=== PATIENT | male | born 1995 | race Two or more races ===

== ENCOUNTER 2018-09-14 09:04 | Inpatient (IN) | payer OTHER, BC ==
[2018-09-14] MEDS ORDERED: Sodium Chloride 0.9% 10 ML Syringe FLUSH PRN (09:06)
[2018-09-14] MEDS ORDERED: Sodium Chloride 0.9% 2.5 ML Syringe FLUSH PRN (09:06)
[2018-09-14] MEDS ORDERED: ceFAZolin 2 GM in Premix Bag 1 BAG IV ONE (09:08)
[2018-09-14] MEDS ORDERED: HYDROmorphone 1 MG/ML Syringe IVPUSH ONE (09:08)
[2018-09-14] MEDS ORDERED: Diphtheria,Pertussis(Acell),Tetanus Vaccine 0.5 ML Syringe IM ONE (09:14)
--- NOTE | 2018-09-14 09:14 | EDM.PDOC ---
ED HPI GENERAL MEDICAL PROBLEM - General Stated Complaint: INJURY TO FINGERS Time Seen by Provider: 09/14/18 09:05 - History of Present Illness INITIAL COMMENTS - FREE TEXT/NARRATIVE: HISTORY AND PHYSICAL: History of present illness: The patient is a healthy 23-year-old male who is unsure of his last tetanus shot and presents from work after he was moving some types when a piece of pipe fell on to bilateral palms and severed the distal aspect of the left thumb as well as the right thumb. The remainder of the hand and the digits were spared and he had no other injuries. Patient is right-hand dominant and did not take anything for pain prior to coming here. The patient says that he had no systemic issues or problems prior to these events. Patient can feel the remainder of the fingers and says that sensation is intact in the thumbs and the proximal aspect of the thumbs are nontender. Review of systems: As per history of present illness and below otherwise all systems reviewed and negative. Past medical history: As per history of present illness and as reviewed below otherwise noncontributory. Surgical history: As per history of present illness and as reviewed below otherwise noncontributory. Social history: No reported history of drug or alcohol abuse. Family history: As per history of present illness and as reviewed below otherwise noncontributory. Physical exam: General: Well-developed well-nourished man who is hyperventilating and in acute distress on arrival. Vital signs were noted by me HEENT: Atraumatic, normocephalic, negative for conjunctival pallor or scleral icterus, mucous membranes moist, throat clear, neck supple, nontender, trachea midline. Lungs: Clear to auscultation, breath sounds equal bilaterally, chest nontender. Heart: S1S2, regular rhythm and sensory tachycardic rate of my evaluation but no overt murmurs Abdomen: Soft, nondistended, nontender. Negative for masses or hepatosplenomegaly. NABS Pelvis: Stable nontender. Genitourinary: Deferred. Rectal: Deferred. Extremities: Atraumatic, range of motion of all extremities with the exception of bilateral thumbs. At the left thumb the nailbed is disrupted about midpoint and there is soft tissue loss which is complete and the tip was brought in by coworkers. The PIP is intact and nontender as is the proximal phalanx and the remainder of the left digit and hands are intact and nontender. At the right thumb the entire distal phalanx is severed and is hanging on by a small tenuous piece of soft tissue on the volar aspect of the thumb but the proximal phalanx is intact and nontender. There is no aggressive bleeding noted at either thumb and the remainder of the right fingers and hand are intact without tenderness defects or deformities. Neurovascular unremarkable. Neuro: Awake, alert, oriented. Cranial nerves II through XII unremarkable. Cerebellum unremarkable. Motor and sensory unremarkable throughout. Exam nonfocal. Diagnostics: Bilateral thumb x-rays Therapeutics: Tdap, IV, Dilaudid Ancef digital block bilaterally Ativan Procedure note: Using 1% lidocaine without epinephrine a simple digital block was placed on bilateral thumbs without complication or event. The patient tolerated the procedure well. Sterile saline gauzes were placed on the fingers bilaterally and the distal phalanx soft tissue that is on fire tenuous tissue thread was not disrupted from the right thumb. 0925: Dr. Meyers is here at bedside evaluating the patient Impression: Bilateral distal thumb amputations Definitive disposition and diagnosis as appropriate pending reevaluation and review of above. bilateral thumbs Pain Score (Numeric/FACES): 10 - Related Data Allergies Allergy/AdvReac Type Severity Reaction Status Date / Time No Known Allergies Allergy Verified 09/14/18 09:15 Home Meds: Home Meds . [No Known Home Meds] 09/14/18 [History] ED ROS GENERAL - Review of Systems Review Of Systems: ROS reveals no pertinent complaints other than HPI. ED EXAM, GENERAL - Physical Exam Exam: See Below (see dictation) Course - Vital Signs Last Recorded V/S: Last Vital Signs Temp 36.8 C 09/14/18 09:12 Pulse 102 H 09/14/18 09:12 Resp 24 H 09/14/18 09:12 BP 151/98 H 09/14/18 09:12 Pulse Ox 100 09/14/18 09:12 - Orders/Labs/Meds Orders: Active Orders 24 hr Category Date Time Status Patient Status [ADT] Stat ADT 09/14/18 09:45 Ordered Notify Provider Consults [RC] ASDIRECTED Care 09/14/18 09:21 Active Vaccines to be Administered [RC] PER UNIT ROUTINE Care 09/14/18 09:14 Active Consult to Physician [CONS] Stat Cons 09/14/18 09:21 Active Fingers Thumb Lt FA [CR] Stat Exams 09/14/18 09:09 Ordered Fingers Thumb Rt F5 [CR] Stat Exams 09/14/18 09:09 Ordered Sodium Chloride 0.9% [Saline Flush] Med 09/14/18 09:06 Active 10 ml FLUSH ASDIRECTED PRN Sodium Chloride 0.9% [Saline Flush] Med 09/14/18 09:06 Active 2.5 ml FLUSH ASDIRECTED PRN Saline Lock Insert [OM.PC] Stat Oth 09/14/18 09:06 Ordered Medication Orders Sodium Chloride (Saline Flush) 10 ml FLUSH ASDIRECTED PRN PRN Reason: Keep Vein Open Sodium Chloride (Saline Flush) 2.5 ml FLUSH ASDIRECTED PRN PRN Reason: Keep Vein Open Meds: Medications Generic Name Dose Route Start Last Admin Trade Name Freq PRN Reason Stop Dose Admin Sodium Chloride 10 ml 09/14/18 09:06 Saline Flush FLUSH ASDIRECTED PRN Keep Vein Open Sodium Chloride 2.5 ml 09/14/18 09:06 Saline Flush FLUSH ASDIRECTED PRN Keep Vein Open Discontinued Medications Generic Name Dose Route Start Last Admin Trade Name Freq PRN Reason Stop Dose Admin Diphtheria/Tetanus/Acell Pertussis 0.5 ml 09/14/18 09:14 09/14/18 09:24 Adacel IM 09/14/18 09:15 0.5 ml .ONCE ONE Administration Hydromorphone HCl 1 mg 09/14/18 09:08 09/14/18 09:18 Dilaudid IVPUSH 09/14/18 09:09 1 mg ONETIME ONE Administration Cefazolin Sodium/Dextrose 2 gm 50 mls @ 100 mls/hr 09/14/18 09:08 09/14/18 09 :17 / Premix IV 09/14/18 09:37 100 mls/hr ONETIME ONE Administration Lidocaine HCl 5 ml 09/14/18 09:06 Xylocaine-Mpf 1% INJECT 09/14/18 09:07 ONETIME ONE Lidocaine HCl 5 ml 09/14/18 09:30 Xylocaine-Mpf 1% INJECT 09/14/18 09:31 ONETIME ONE Lorazepam 0.5 mg 09/14/18 09:30 09/14/18 09:36 Ativan IVPUSH 09/14/18 09:31 0.5 mg ONETIME ONE Administration Departure - Departure Time of Disposition: 09:47 Disposition: Still A Patient 30 Condition: Good Clinical Impression: Thumb injury Qualifiers: Encounter type: initial encounter Laterality: unspecified laterality Qualified Code(s): S69.90XA - Unspecified injury of unspecified wrist, hand and finger(s) , initial encounter - Discharge Information - My Orders Last 24 Hours: My Active Orders 09/14/18 09:06 Sodium Chloride 0.9% [Saline Flush] 10 ml FLUSH ASDIRECTED PRN Sodium Chloride 0.9% [Saline Flush] 2.5 ml FLUSH ASDIRECTED PRN Saline Lock Insert [OM.PC] Stat 09/14/18 09:09 Fingers Thumb Lt FA [CR] Stat Fingers Thumb Rt F5 [CR] Stat 09/14/18 09:14 Vaccines to be Administered [RC] PER UNIT ROUTINE 09/14/18 09:21 Notify Provider Consults [RC] ASDIRECTED Consult to Physician [CONS] Stat 09/14/18 09:45 Patient Status [ADT] Stat - Assessment/Plan Last 24 Hours: My Active Orders 09/14/18 09:06 Sodium Chloride 0.9% [Saline Flush] 10 ml FLUSH ASDIRECTED PRN Sodium Chloride 0.9% [Saline Flush] 2.5 ml FLUSH ASDIRECTED PRN Saline Lock Insert [OM.PC] Stat 09/14/18 09:09 Fingers Thumb Lt FA [CR] Stat Fingers Thumb Rt F5 [CR] Stat 09/14/18 09:14 Vaccines to be Administered [RC] PER UNIT ROUTINE 09/14/18 09:21 Notify Provider Consults [RC] ASDIRECTED Consult to Physician [CONS] Stat 09/14/18 09:45 Patient Status [ADT] Stat
[2018-09-14] MEDS ORDERED: LORazepam 2 MG/ML SDV IVPUSH ONE (09:30)
[2018-09-14] MEDS ORDERED: Lidocaine 2% 5 ML SDV ONE ×2 (09:47→10:44)
[2018-09-14] MEDS ORDERED: Rocuronium 10 MG/ML 10 ML Syringe ONE (09:47)
[2018-09-14] MEDS ORDERED: Succinylcholine 200 MG/10 ML MDV ONE (09:47)
[2018-09-14] MEDS ORDERED: Propofol 200 MG/20 ML SDV ONE (09:47)
[2018-09-14] MEDS ORDERED: Midazolam 1 MG/ML 2 ML SDV ONE (09:48)
[2018-09-14] MEDS ORDERED: fentaNYL 100 MCG/2 ML SDV ONE (09:48)
--- NOTE | 2018-09-14 10:06 | CR ---
EXAMINATION: Right thumb HISTORY: Trauma COMPARISON: None TECHNIQUE: 3 views FINDINGS: There is an amputation of the distal first phalanx through the proximal metaphysis. There appears to be a intact cutaneous component along the ulnar aspect. The distal fragment appears mildly comminuted along the fracture margin. The remaining osseous structures and joint spaces appear intact. Bone mineralization is otherwise normal. IMPRESSION: Amputation of the distal first phalanx through the proximal metaphysis of the distal first phalanx.
--- NOTE | 2018-09-14 10:06 | CR ---
EXAMINATION: Left thumb HISTORY: Trauma COMPARISON: None TECHNIQUE: 3 views FINDINGS: There is a displaced fracture through the distal first phalanx with an overlying cutaneous defect. There is likely amputation of the distal aspect of the tuft with overlying soft tissue. The remaining osseous structures and joint spaces appear preserved. IMPRESSION: 1. Soft tissue amputation including a small portion of the tuft of the distal first phalanx with an underlying displaced fracture through the mid aspect of the first distal phalanx.
--- NOTE | 2018-09-14 10:17 | PCM.PREANE ---
Preanesthetic Assessment - Procedure Proposed Procedure: repair of bilateral distal thumb traumatic amputations - Anesthesia/Transfusion/Family Hx Anesthesia History: No Prior Anesthesia Family History of Anesthesia Reaction: No Transfusion History: No Prior Transfusion(s) - Review of Systems General: No Symptoms (no meds, no allergies, no previous surgeries, no medical issues, no hospitalizations or ER visits) Pulmonary: No Symptoms Cardiovascular: No Symptoms Gastrointestinal: No Symptoms Neurological: No Symptoms (febrile seizure as a child. no sequelae) Other: Reports: None - Physical Assessment NPO Status Date: 09/14/18 NPO Status Time: 07:30 (breakfast bar and 2 bottles water at 0730) Pulse: 102 (anxious, has received block and dilaudid for pain) O2 Sat by Pulse Oximetry: 100 Respiratory Rate: 24 Blood Pressure: 151/98 Temperature: 36.8 C Vital Signs: Last Vital Signs Temp 36.8 C 09/14/18 09:12 Pulse 102 H 09/14/18 09:12 Resp 24 H 09/14/18 09:12 BP 151/98 H 09/14/18 09:12 Pulse Ox 100 09/14/18 09:12 Height: 1.8 m Weight: 86.183 kg ASA Class: 1E Mental Status: Alert & Oriented x3 Airway Class: Mallampati = 1 Dentition: Reports: Normal Dentition Thyro-Mental Finger Breadths: 3 Mouth Opening Finger Breadths: 3 ROM/Head Extension: Full Lungs: Clear to Auscultation, Normal Respiratory Effort Cardiovascular: Regular Rate, Regular Rhythm, No Murmurs - Allergies Allergies/Adverse Reactions: Allergies Allergy/AdvReac Type Severity Reaction Status Date / Time No Known Allergies Allergy Verified 09/14/18 09:15 - Blood Blood Available: No Product(s) Available: None - Anesthesia Plan Pre-Op Medication Ordered: Other (has had dilaudid in ER) - Acknowledgements Anesthesia Type Planned: General Anesthesia (Plan: GA with ETT. RSI with cricoid due to food and water this morning) Pt an Appropriate Candidate for the Planned Anesthesia: Yes Alternatives and Risks of Anesthesia Discussed w Pt/Guardian: Yes Pt/Guardian Understands and Agrees with Anesthesia Plan: Yes PreAnesthesia Questionnaire - Past Health History Medical/Surgical History: Denies Medical/Surgical History - SUBSTANCE USE Smoking Status *Q: Never Smoker Second Hand Smoke Exposure: No Recreational Drug Use History: No - HOME MEDS Home Medications: Home Meds . [No Known Home Meds] 09/14/18 [History] - CURRENT (IN HOUSE) MEDS Current Meds: Current Medications Sodium Chloride (Saline Flush) 10 ml FLUSH ASDIRECTED PRN PRN Reason: Keep Vein Open Sodium Chloride (Saline Flush) 2.5 ml FLUSH ASDIRECTED PRN PRN Reason: Keep Vein Open Discontinued Medications Diphtheria/Tetanus/Acell Pertussis (Adacel) 0.5 ml IM .ONCE ONE Stop: 09/14/18 09:15 Last Admin: 09/14/18 09:24 Dose: 0.5 ml Fentanyl (Sublimaze) Confirm Administered Dose 100 mcg .ROUTE .STK-MED ONE Stop: 09/14/18 09:49 Hydromorphone HCl (Dilaudid) 1 mg IVPUSH ONETIME ONE Stop: 09/14/18 09:09 Last Admin: 09/14/18 09:18 Dose: 1 mg Cefazolin Sodium/Dextrose 2 gm (/ Premix) 50 mls @ 100 mls/hr IV ONETIME ONE Stop: 09/14/18 09:37 Last Admin: 09/14/18 09:17 Dose: 100 mls/hr Lidocaine (Xylocaine-Mpf 2%) Confirm Administered Dose 5 ml .ROUTE .STK-MED ONE Stop: 09/14/18 09:48 Lidocaine HCl (Xylocaine-Mpf 1%) 5 ml INJECT ONETIME ONE Stop: 09/14/18 09:07 Lidocaine HCl (Xylocaine-Mpf 1%) 5 ml INJECT ONETIME ONE Stop: 09/14/18 09:31 Lorazepam (Ativan) 0.5 mg IVPUSH ONETIME ONE Stop: 09/14/18 09:31 Last Admin: 09/14/18 09:36 Dose: 0.5 mg Midazolam HCl (Versed 1 Mg/Ml) Confirm Administered Dose 2 mg .ROUTE .STK-MED ONE Stop: 09/14/18 09:49 Propofol (Diprivan 20 Ml) Confirm Administered Dose 200 mg .ROUTE .STK-MED ONE Stop: 09/14/18 09:48 Rocuronium [place] (Zemuron) Confirm Administered Dose 100 mg .ROUTE .STK-MED ONE Stop: 09/14/18 09:48 Succinylcholine Chloride (Quelicin) Confirm Administered Dose 200 mg .ROUTE .[facility] -MED ONE Stop: 09/14/18 09:48
[2018-09-14] MEDS ORDERED: Ondansetron 4 MG/2 ML SDV ONE ×2 (10:38→12:56)
[2018-09-14] MEDS ORDERED: Dexamethasone 4 MG/ML 5 ML MDV ONE (10:38)
[2018-09-14] MEDS ORDERED: Bupivacaine 0.25% 10 ML SDV ONE (10:44)
[2018-09-14] MEDS ORDERED: HYDROmorphone 2 MG/ML Syringe ONE (10:52)
[2018-09-14] MEDS ORDERED: Ondansetron 4 MG/2 ML SDV IVPUSH PRN ×2 (12:34→14:04)
[2018-09-14] MEDS ORDERED: Meperidine PF 25 MG/ML Syringe IV PRN (12:34)
[2018-09-14] MEDS ORDERED: HYDROmorphone 1 MG/ML Syringe IVPUSH PRN (12:34)
[2018-09-14] MEDS ORDERED: fentaNYL 100 MCG/2 ML SDV IVPUSH PRN (12:34)
[2018-09-14] MEDS ORDERED: Promethazine 25 MG/ML SDV IM PRN (12:34)
[2018-09-14] MEDS ORDERED: Ketorolac 30 MG/ML SDV ONE ×2 (12:56→13:25)
[2018-09-14] MEDS ORDERED: Bupivacaine 0.25%/EPINEPHrine 1:200,000 10 ML SDV ONE (13:54)
[2018-09-14] MEDS ORDERED: Ibuprofen 600 MG Tab PO PRN (14:04)
[2018-09-14] MEDS ORDERED: Ondansetron 4 MG Tab.DIS PO PRN (14:04)
[2018-09-14] MEDS ORDERED: diphenhydrAMINE 25 MG Cap PO PRN (14:04)
--- NOTE | 2018-09-14 14:10 | PCM.OPNOTE ---
- General Post-Op/Procedure Note Date of Surgery/Procedure: 09/14/18 Operative Procedure(s): Replantation of right thumb (bone fixation, bilateral digital nerve repairs, single digital artery repair with use of operating microscope), left thumb oneal flap for distal tip amputation closure. Pre Op Diagnosis: bilateral thumb transphalangeal amputations traumatic. Post-Op Diagnosis: Same Anesthesia Technique: General ET Tube, Local Primary Surgeon: Yanet Meyers Machine Veneer Repairer: Lorri Lockwood Reason Machine Veneer Repairer Was Necessary: retraction, prepping draping and closure assistance. Complications: None Condition: Serious
--- NOTE | 2018-09-14 14:15 | PCM.HP ---
H&P History of Present Illness - General Date of Service: 09/14/18 Admit Problem/Dx: Admission Diagnosis/Problem Admission Diagnosis/Problem Thumb injury - bilateral thumb amputations transphalangeal Source of Information: Patient History Limitations: Reports: No Limitations - History of Present Illness Onset of Symptoms: Reports: Today, Sudden Duration of Symptoms: Reports: Minutes: (30) Location: Reports: Upper Extremity, Left, Upper Extremity, Right Quality: Reports: Ache Severity: Severe Improves with: Reports: None Worsens with: Reports: None Context: Reports: Trauma Associated Symptoms: Reports: No Other Symptoms bilateral thumbs Pain Score (Numeric/FACES): 10 - Related Data Allergies/Adverse Reactions: Allergies Allergy/AdvReac Type Severity Reaction Status Date / Time No Known Allergies Allergy Verified 09/14/18 09:15 Home Medications: Home Meds . [No Known Home Meds] 09/14/18 [History] Past Medical History - Past Health History Medical/Surgical History: Denies Medical/Surgical History (previous febrile seizure as a child. Otherwise none.) Social & Family History - Family History Family Medical History: Noncontributory - Tobacco Use Smoking Status *Q: Never Smoker Second Hand Smoke Exposure: No - Recreational Drug Use Recreational Drug Use: No Drug Use in Last 12 Months: No H&P Review of Systems - Review of Systems: Review Of Systems: See Below General: Reports: No Symptoms HEENT: Reports: No Symptoms Pulmonary: Reports: No Symptoms Cardiovascular: Reports: No Symptoms Gastrointestinal: Reports: No Symptoms Genitourinary: Reports: No Symptoms Musculoskeletal: Reports: Hand Pain Skin: Reports: No Symptoms, Wound Psychiatric: Reports: No Symptoms Neurological: Reports: No Symptoms Hematologic/Lymphatic: Reports: No Symptoms Immunologic: Reports: No Symptoms Exam - Exam Exam: See Below - Vital Signs Vital Signs: Last Vital Signs Temp 96.8 F 09/14/18 13:42 Pulse 61 09/14/18 14:05 Resp 14 09/14/18 14:05 BP 119/69 09/14/18 14:05 Pulse Ox 99 09/14/18 14:05 Weight: 190 lb - Exam General: Alert, Oriented, Cooperative HEENT: EOMI Lungs: Clear to Auscultation, Normal Respiratory Effort Cardiovascular: Regular Rate, Regular Rhythm GI/Abdominal Exam: Soft Extremities: Other (bilateral thumb amputations. The right thumb has the flexor tendon frayed but attached. Deviatalized tip. No sensation. The left distal tip amputation is complete and far to distal for revascularization. Possible on the right - will attempt though the distal part is quite crushed and the nerves are present in a very long stretched out nature indicating avulsion. Flexor tendons intact to both digits. Extensor tendon moves the skin of the proximal thumb piece on the right. ) Skin: Warm, Dry, Wound (bilateral thumbs as above. ) Neuro Extensive - Mental Status: Alert, Oriented x3, Normal Mood/Affect Psychiatric: Alert, Normal Affect, Normal Mood, Anxious - Patient Data Imaging Impressions Last 24 hrs: 3v bilateral thumbs shows distal amputation trans distal phalanx on the left. Right is slightly more proximal but still in distal phalanx. - Problem List (1) Complete traumatic transphalangeal amputation of thumb SNOMED Code(s): 442228127 ICD Code: S68.519A - COMPLETE TRAUMATIC TRANSPHALANGEAL AMPUTATION OF THMB, INIT Status: Acute Priority: High Current Visit: Yes Qualifiers: Encounter type: initial encounter Laterality: left Qualified Code(s): S68.512A - Complete traumatic transphalangeal amputation of left thumb, initial encounter (2) Partial traumatic transphalangeal amputation of thumb SNOMED Code(s): 570136502 ICD Code: S68.529A - PARTIAL TRAUMATIC TRANSPHALANGEAL AMPUTATION OF THMB, INIT Status: Acute Priority: High Current Visit: Yes Qualifiers: Encounter type: initial encounter Laterality: right Qualified Code(s): S68.521A - Partial traumatic transphalangeal amputation of right thumb, initial encounter Problem List Initiated/Reviewed/Updated: Yes Orders Last 24hrs: Active Orders 24 hr Category Date Time Status Patient Status [ADT] Routine ADT 09/14/18 14:03 Active Bradycardia-Neuroaxis [employer] [RC] ROUTINE Care 09/14/18 12:37 Active Hypertension-Neuroaxis [employer] [RC] ROUTINE Care 09/14/18 12:37 Active Hypotension-Neuroaxis [employer] [RC] ROUTINE Care 09/14/18 12:37 Active Notify Provider Consults [RC] ASDIRECTED Care 09/14/18 09:21 Active Oxygen Therapy [RC] ASDIRECTED Care 09/14/18 12:37 Active Vaccines to be Administered [RC] PER UNIT ROUTINE Care 09/14/18 09:14 Active Vital Signs [RC] PER UNIT ROUTINE Care 09/14/18 12:34 Active Vital Signs [RC] PER UNIT ROUTINE Care 09/14/18 14:04 Active Wound Care [RC] DAILY Care 09/14/18 14:04 Active Consult to Physician [CONS] Stat Cons 09/14/18 09:21 Active Nothing Per Oral Diet [DIET] Diet 09/15/18 Breakfast Active Regular Diet [DIET] Diet 09/14/18 Dinner Active Acetaminophen/HYDROcodone [[place] 325-5 MG] Med 09/14/18 14:04 Active 1 tab PO Q4H PRN Aspirin Med 09/14/18 21:00 Ordered 81 mg PO BEDTIME Enoxaparin [Lovenox] Med 09/14/18 18:00 Ordered 30 mg SUBCUT Q24H HYDROmorphone [Dilaudid] Med 09/14/18 12:34 Active 1 mg IVPUSH ONETIME PRN Ibuprofen [Motrin] Med 09/14/18 14:04 Active 600 mg PO Q6H PRN Morphine Med 09/14/18 14:04 Ordered 2 mg IVPUSH Q2H PRN Ondansetron [Zofran ODT] Med 09/14/18 14:04 Ordered 4 mg PO Q6H PRN Ondansetron [Zofran] Med 09/14/18 12:34 Active 4 mg IVPUSH ONETIME PRN Ondansetron [Zofran] Med 09/14/18 14:04 Ordered 4 mg IVPUSH Q4H PRN Promethazine [Phenergan] Med 09/14/18 12:34 Active 12.5 mg IM ONETIME PRN Sodium Chloride 0.9% [Saline Flush] Med 09/14/18 09:06 Active 10 ml FLUSH ASDIRECTED PRN Sodium Chloride 0.9% [Saline Flush] Med 09/14/18 09:06 Active 2.5 ml FLUSH ASDIRECTED PRN diphenhydrAMINE [Benadryl] Med 09/14/18 14:04 Ordered 25 mg PO Q8H PRN Saline Lock Insert [OM.PC] Stat Oth 09/14/18 09:06 Ordered Medication Orders Hydrocodone Bitart/Acetaminophen ([place] 325-5 Mg) 1 tab PO Q4H PRN PRN Reason: Pain (moderate 4-6) Aspirin (Aspirin) 81 mg PO BEDTIME PRANEETH Diphenhydramine HCl (Benadryl) 25 mg PO Q8H PRN PRN Reason: Itching Enoxaparin Sodium (Lovenox) 30 mg SUBCUT Q24H PRANEETH Hydromorphone HCl (Dilaudid) 1 mg IVPUSH ONETIME PRN PRN Reason: Pain Ibuprofen (Motrin) 600 mg PO Q6H PRN PRN Reason: Pain (mild 1-3) Morphine Sulfate (Morphine) 2 mg IVPUSH Q2H PRN PRN Reason: Pain (severe 7-10) Ondansetron HCl (Zofran) 4 mg IVPUSH ONETIME PRN PRN Reason: Nausea Ondansetron HCl (Zofran Odt) 4 mg PO Q6H PRN PRN Reason: Nausea/Vomiting Ondansetron HCl (Zofran) 4 mg IVPUSH Q4H PRN PRN Reason: Nausea Promethazine HCl (Phenergan) 12.5 mg IM ONETIME PRN PRN Reason: Nausea Sodium Chloride (Saline Flush) 10 ml FLUSH ASDIRECTED PRN PRN Reason: Keep Vein Open Sodium Chloride (Saline Flush) 2.5 ml FLUSH ASDIRECTED PRN PRN Reason: Keep Vein Open Assessment/Plan Comment:: bilateral thumb amputations - transphalangeal. To the or for replantation attempt for the right and Samantha flap on the left. All questions answered and informed consent obtained. Though I am not optimistic on the distal nature or the crush injury we will attempt this as it is his thumb and worth every effort to salvage. He understands.
--- NOTE | 2018-09-14 14:31 | PCM.POSTAN ---
POST ANESTHESIA ASSESSMENT - MENTAL STATUS Mental Status: Alert, Oriented - RESPIRATORY Respiratory Status: Respiratory Rate WNL, Airway Patent, O2 Saturation Stable - CARDIOVASCULAR CV Status: Pulse Rate WNL, Blood Pressure Stable - GASTROINTESTINAL GI Status: No Symptoms - PAIN Pain Score: 1 - POST OP HYDRATION Hydration Status: Adequate & Stable - OBSERVATIONS Free Text/Narrative:: no anesthesia problems
[2018-09-14] MEDS: Acetaminophen/HYDROcodone 325-5 MG Tab PO PRN ×2 (16:05→20:25)
--- NOTE | 2018-09-14 18:04 | PCM.SN ---
- Free Text/Narrative Note: thumb on the right is slightly better than previous with improved turgor. Not convinced this will survive. Significant vessel damage. Discussed with patient. Pain controlled and feeling well. Will watch closely. Lovenox and aspirin start.
[2018-09-14] MEDS: Enoxaparin 30 MG/0.3 ML Syringe SUBCUT SCH (18:46)
--- NOTE | 2018-09-14 19:02 | PCM.PREANE ---
Preanesthetic Assessment - Procedure Proposed Procedure: surgery on thumb (re-do Oct 02)) - Anesthesia/Transfusion/Family Hx Anesthesia History: Prior Anesthesia Without Reaction (surgery yesterday for both thumbs. GA with ETT due to NPO status. No anesthesia issues.) Family History of Anesthesia Reaction: No Transfusion History: No Prior Transfusion(s) - Review of Systems General: No Symptoms Pulmonary: No Symptoms Cardiovascular: No Symptoms Gastrointestinal: No Symptoms Neurological: No Symptoms Other: Reports: None (history of anxiety in the past.) - Physical Assessment NPO Status Date: 09/16/18 NPO Status Time: 00:00 Pulse: 82 O2 Sat by Pulse Oximetry: 98 Respiratory Rate: 20 Blood Pressure: 132/68 Temperature: 36 C Vital Signs: Last Vital Signs Temp 36.9 C 09/14/18 17:45 Pulse 89 09/14/18 17:45 Resp 16 09/14/18 17:45 BP 125/76 09/14/18 17:45 Pulse Ox 98 09/14/18 17:45 Height: 1.8 m Weight: 86.183 kg ASA Class: 1E Mental Status: Alert & Oriented x3 Airway Class: Mallampati = 1 Dentition: Reports: Normal Dentition Thyro-Mental Finger Breadths: 2 Mouth Opening Finger Breadths: 3 ROM/Head Extension: Full Lungs: Clear to Auscultation, Normal Respiratory Effort Cardiovascular: Regular Rate, Regular Rhythm - Allergies Allergies/Adverse Reactions: Allergies Allergy/AdvReac Type Severity Reaction Status Date / Time No Known Allergies Allergy Verified 09/14/18 09:15 - Blood Blood Available: No Product(s) Available: None - Anesthesia Plan Pre-Op Medication Ordered: None - Acknowledgements Anesthesia Type Planned: General Anesthesia (Plan: GA with LMA . Discussed with patient. consent signed.) Pt an Appropriate Candidate for the Planned Anesthesia: Yes Alternatives and Risks of Anesthesia Discussed w Pt/Guardian: Yes Pt/Guardian Understands and Agrees with Anesthesia Plan: Yes PreAnesthesia Questionnaire - Past Health History Medical/Surgical History: Denies Medical/Surgical History (previous febrile seizure as a child. Otherwise none.) Neurological History: Reports: Seizure Other Neuro History: stated "siezures as a child." - SUBSTANCE USE Smoking Status *Q: Never Smoker Second Hand Smoke Exposure: No Recreational Drug Use History: No - HOME MEDS Home Medications: Home Meds . [No Known Home Meds] 09/14/18 [History] - CURRENT (IN HOUSE) MEDS Current Meds: Current Medications Hydrocodone Bitart/Acetaminophen ([place] 325-5 Mg) 1 tab PO Q4H PRN PRN Reason: Pain (moderate 4-6) Last Admin: 09/14/18 16:05 Dose: 1 tab Aspirin (Aspirin) 81 mg PO BEDTIME [facility] Diphenhydramine HCl (Benadryl) 25 mg PO Q8H PRN PRN Reason: Itching Enoxaparin Sodium (Lovenox) 30 mg SUBCUT Q24H [facility] Last Admin: 09/14/18 18:46 Dose: 30 mg Hydromorphone HCl (Dilaudid) 1 mg IVPUSH ONETIME PRN PRN Reason: Pain Lactated Ringer's (Ringers, Lactated) 1,000 mls @ 125 mls/hr IV ASDIRECTED [facility] Ibuprofen (Motrin) 600 mg PO Q6H PRN PRN Reason: Pain (mild 1-3) Morphine Sulfate (Morphine) 2 mg IVPUSH Q2H PRN PRN Reason: Pain (severe 7-10) Ondansetron HCl (Zofran) 4 mg IVPUSH ONETIME PRN PRN Reason: Nausea Ondansetron HCl (Zofran Odt) 4 mg PO Q6H PRN PRN Reason: Nausea/Vomiting Ondansetron HCl (Zofran) 4 mg IVPUSH Q4H PRN PRN Reason: Nausea Promethazine HCl (Phenergan) 12.5 mg IM ONETIME PRN PRN Reason: Nausea Sodium Chloride (Saline Flush) 10 ml FLUSH ASDIRECTED PRN PRN Reason: Keep Vein Open Sodium Chloride (Saline Flush) 2.5 ml FLUSH ASDIRECTED PRN PRN Reason: Keep Vein Open Discontinued Medications Bupivacaine HCl (Sensorcaine-Mpf 0.25%) Confirm Administered Dose 20 ml .ROUTE .STK-MED ONE Stop: 09/14/18 10:45 Bupivacaine HCl/Epinephrine Bitart ([place] 0.25%/Epinephrine 1:200,000) Confirm Administered Dose 20 ml .ROUTE .STK-MED ONE Stop: 09/14/18 13:55 Dexamethasone (Dexamethasone) Confirm Administered Dose 20 mg .ROUTE .STK-MED ONE Stop: 09/14/18 10:39 Diphtheria/Tetanus/Acell Pertussis (Adacel) 0.5 ml IM .ONCE ONE Stop: 09/14/18 09:15 Last Admin: 09/14/18 09:24 Dose: 0.5 ml Fentanyl (Sublimaze) Confirm Administered Dose 100 mcg .ROUTE .STK-MED ONE Stop: 09/14/18 09:49 Fentanyl (Sublimaze) 50 - 100 mcg IVPUSH Q5M PRN PRN Reason: Pain Stop: 09/14/18 12:40 Hydromorphone HCl (Dilaudid) 1 mg IVPUSH ONETIME ONE Stop: 09/14/18 09:09 Last Admin: 09/14/18 09:18 Dose: 1 mg Hydromorphone HCl (Dilaudid) Confirm Administered Dose 2 mg .ROUTE .STK-MED ONE Stop: 09/14/18 10:53 Cefazolin Sodium/Dextrose 2 gm (/ Premix) 50 mls @ 100 mls/hr IV ONETIME ONE Stop: 09/14/18 09:37 Last Admin: 09/14/18 09:17 Dose: 100 mls/hr Ketorolac Tromethamine (Toradol) Confirm Administered Dose 30 mg .ROUTE .STK- MED ONE Stop: 09/14/18 12:57 Ketorolac Tromethamine (Toradol) Confirm Administered Dose 30 mg .ROUTE .STK- MED ONE Stop: 09/14/18 13:26 Lidocaine (Xylocaine-Mpf 2%) Confirm Administered Dose 5 ml .ROUTE .STK-MED ONE Stop: 09/14/18 09:48 Lidocaine (Xylocaine-Mpf 2%) Confirm Administered Dose 20 ml .ROUTE .STK-MED ONE Stop: 09/14/18 10:45 Lidocaine HCl (Xylocaine-Mpf 1%) 5 ml INJECT ONETIME ONE Stop: 09/14/18 09:07 Last Admin: 09/14/18 15:27 Dose: Not Given Lidocaine HCl (Xylocaine-Mpf 1%) 5 ml INJECT ONETIME ONE Stop: 09/14/18 09:31 Last Admin: 09/14/18 15:27 Dose: Not Given Lorazepam (Ativan) 0.5 mg IVPUSH ONETIME ONE Stop: 09/14/18 09:31 Last Admin: 09/14/18 09:36 Dose: 0.5 mg Meperidine HCl (Demerol) 12.5 - 25 mg IV ONETIME PRN PRN Reason: Shivering Stop: 09/14/18 12:37 Midazolam HCl (Versed 1 Mg/Ml) Confirm Administered Dose 2 mg .ROUTE .STK-MED ONE Stop: 09/14/18 09:49 Ondansetron HCl (Zofran) Confirm Administered Dose 4 mg .ROUTE .STK-MED ONE Stop: 09/14/18 10:39 Ondansetron HCl (Zofran) Confirm Administered Dose 4 mg .ROUTE .STK-MED ONE Stop: 09/14/18 12:57 Propofol (Diprivan 20 Ml) Confirm Administered Dose 200 mg .ROUTE .STK-MED ONE Stop: 09/14/18 09:48 Rocuronium [place] (Zemuron) Confirm Administered Dose 100 mg .ROUTE .STK-MED ONE Stop: 09/14/18 09:48 Succinylcholine Chloride (Quelicin) Confirm Administered Dose 200 mg .ROUTE .STK -MED ONE Stop: 09/14/18 09:48
--- NOTE | 2018-09-14 19:04 | PCM48HPAN ---
Post Anesthesia Note - EVALUATION WITHIN 48HRS OF ANESTHETIC Vital Signs in Normal Range: Yes Patient Participated in Evaluation: Yes Respiratory Function Stable: Yes Airway Patent: Yes Cardiovascular Function Stable: Yes Hydration Status Stable: Yes Pain Control Satisfactory: Yes Nausea and Vomiting Control Satisfactory: Yes Mental Status Recovered: Yes Pulse Rate: 102 Resp Rate: 18 Temperature: 36.8 C Blood Pressure: 151/98 - COMMENTS/OBSERVATIONS Free Text/Narrative:: doing well. Surgeon will re-evaluate condition of thumbs in a.m. NPO for after dinner tomorrow for possible bring-back to OR on monday.
[2018-09-14] MEDS: Aspirin 81 MG Tab.Chew PO SCH (20:25)
[2018-09-15] MEDS: Acetaminophen/HYDROcodone 325-5 MG Tab PO PRN ×5 (02:01→23:55)
[2018-09-15] MEDS ORDERED: Lactated Ringers 1,000 ML IV SCH (03:00)
[2018-09-15] MEDS: Morphine 2 MG/ML Syringe IVPUSH PRN ×2 (06:50→21:32)
--- NOTE | 2018-09-15 08:53 | PCM.PN ---
- General Info Date of Service: 09/15/18 Admission Dx/Problem (Free Text): Admission Diagnosis/Problem Admission Diagnosis/Problem Thumb injury - bilateral thumb amputations transphalangeal Functional Status: Reports: Pain Controlled, Tolerating Diet, Ambulating. Denies: New Symptoms - Review of Systems General: Reports: No Symptoms HEENT: Reports: No Symptoms Pulmonary: Reports: No Symptoms Cardiovascular: Reports: No Symptoms Musculoskeletal: Reports: Hand Pain Skin: Reports: Other (wounds - healing well. ) Neurological: Reports: Numbness, Paresthesia Psychiatric: Reports: No Symptoms - Patient Data Vitals - Most Recent: Last Vital Signs Temp 97.2 F 09/15/18 04:40 Pulse 71 09/15/18 04:40 Resp 18 09/15/18 04:40 BP 111/62 09/15/18 04:40 Pulse Ox 96 09/15/18 04:40 Weight - Most Recent: 190 lb I&O - Last 24 Hours: Intake & Output 09/14/18 09/15/18 09/15/18 23:59 07:59 15:59 Intake Total 450 Output Total 650 Balance -200 Med Orders - Current: Current Medications Hydrocodone Bitart/Acetaminophen ([place] 325-5 Mg) 1 tab PO Q4H PRN PRN Reason: Pain (moderate 4-6) Last Admin: 09/15/18 08:42 Dose: 1 tab Aspirin (Aspirin) 81 mg PO BEDTIME [facility] Last Admin: 09/14/18 20:25 Dose: 81 mg Diphenhydramine HCl (Benadryl) 25 mg PO Q8H PRN PRN Reason: Itching Enoxaparin Sodium (Lovenox) 30 mg SUBCUT Q24H [facility] Last Admin: 09/14/18 18:46 Dose: 30 mg Hydromorphone HCl (Dilaudid) 1 mg IVPUSH ONETIME PRN PRN Reason: Pain Last Admin: 09/14/18 22:56 Dose: 1 mg Lactated Ringer's (Ringers, Lactated) 1,000 mls @ 125 mls/hr IV ASDIRECTED [facility] Last Admin: 09/15/18 04:56 Dose: 125 mls/hr Ibuprofen (Motrin) 600 mg PO Q6H PRN PRN Reason: Pain (mild 1-3) Morphine Sulfate (Morphine) 2 mg IVPUSH Q2H PRN PRN Reason: Pain (severe 7-10) Last Admin: 09/15/18 06:50 Dose: 2 mg Ondansetron HCl (Zofran) 4 mg IVPUSH ONETIME PRN PRN Reason: Nausea Ondansetron HCl (Zofran Odt) 4 mg PO Q6H PRN PRN Reason: Nausea/Vomiting Ondansetron HCl (Zofran) 4 mg IVPUSH Q4H PRN PRN Reason: Nausea Promethazine HCl (Phenergan) 12.5 mg IM ONETIME PRN PRN Reason: Nausea Sodium Chloride (Saline Flush) 10 ml FLUSH ASDIRECTED PRN PRN Reason: Keep Vein Open Sodium Chloride (Saline Flush) 2.5 ml FLUSH ASDIRECTED PRN PRN Reason: Keep Vein Open Discontinued Medications Bupivacaine HCl (Sensorcaine-Mpf 0.25%) Confirm Administered Dose 20 ml .ROUTE .STK-MED ONE Stop: 09/14/18 10:45 Bupivacaine HCl/Epinephrine Bitart ([place] 0.25%/Epinephrine 1:200,000) Confirm Administered Dose 20 ml .ROUTE .STK-MED ONE Stop: 09/14/18 13:55 Dexamethasone (Dexamethasone) Confirm Administered Dose 20 mg .ROUTE .STK-MED ONE Stop: 09/14/18 10:39 Diphtheria/Tetanus/Acell Pertussis (Adacel) 0.5 ml IM .ONCE ONE Stop: 09/14/18 09:15 Last Admin: 09/14/18 09:24 Dose: 0.5 ml Fentanyl (Sublimaze) Confirm Administered Dose 100 mcg .ROUTE .STK-MED ONE Stop: 09/14/18 09:49 Fentanyl (Sublimaze) 50 - 100 mcg IVPUSH Q5M PRN PRN Reason: Pain Stop: 09/14/18 12:40 Hydromorphone HCl (Dilaudid) 1 mg IVPUSH ONETIME ONE Stop: 09/14/18 09:09 Last Admin: 09/14/18 09:18 Dose: 1 mg Hydromorphone HCl (Dilaudid) Confirm Administered Dose 2 mg .ROUTE .STK-MED ONE Stop: 09/14/18 10:53 Cefazolin Sodium/Dextrose 2 gm (/ Premix) 50 mls @ 100 mls/hr IV ONETIME ONE Stop: 09/14/18 09:37 Last Admin: 09/14/18 09:17 Dose: 100 mls/hr Ketorolac Tromethamine (Toradol) Confirm Administered Dose 30 mg .ROUTE .STK- MED ONE Stop: 09/14/18 12:57 Ketorolac Tromethamine (Toradol) Confirm Administered Dose 30 mg .ROUTE .STK- MED ONE Stop: 09/14/18 13:26 Lidocaine (Xylocaine-Mpf 2%) Confirm Administered Dose 5 ml .ROUTE .STK-MED ONE Stop: 09/14/18 09:48 Lidocaine (Xylocaine-Mpf 2%) Confirm Administered Dose 20 ml .ROUTE .STK-MED ONE Stop: 09/14/18 10:45 Lidocaine HCl (Xylocaine-Mpf 1%) 5 ml INJECT ONETIME ONE Stop: 09/14/18 09:07 Last Admin: 09/14/18 15:27 Dose: Not Given Lidocaine HCl (Xylocaine-Mpf 1%) 5 ml INJECT ONETIME ONE Stop: 09/14/18 09:31 Last Admin: 09/14/18 15:27 Dose: Not Given Lorazepam (Ativan) 0.5 mg IVPUSH ONETIME ONE Stop: 09/14/18 09:31 Last Admin: 09/14/18 09:36 Dose: 0.5 mg Meperidine HCl (Demerol) 12.5 - 25 mg IV ONETIME PRN PRN Reason: Shivering Stop: 09/14/18 12:37 Midazolam HCl (Versed 1 Mg/Ml) Confirm Administered Dose 2 mg .ROUTE .ST-MED ONE Stop: 09/14/18 09:49 Ondansetron HCl (Zofran) Confirm Administered Dose 4 mg .ROUTE .STK-MED ONE Stop: 09/14/18 10:39 Ondansetron HCl (Zofran) Confirm Administered Dose 4 mg .ROUTE .STK-MED ONE Stop: 09/14/18 12:57 Propofol (Diprivan 20 Ml) Confirm Administered Dose 200 mg .ROUTE .STK-MED ONE Stop: 09/14/18 09:48 Rocuronium [place] (Zemuron) Confirm Administered Dose 100 mg .ROUTE .STK-MED ONE Stop: 09/14/18 09:48 Succinylcholine Chloride (Quelicin) Confirm Administered Dose 200 mg .ROUTE .STK -MED ONE Stop: 09/14/18 09:48 - Exam General: Alert, Oriented, Cooperative HEENT: EOMI Lungs: Normal Respiratory Effort Extremities: Normal Capillary Refill (on the left. Right fingertip dusky with poor turgor on volar skin. Dorsal nail with very slow cap refill. ), Slow Capillary Refill (on the right thumb dorsally. No visible refill volar. ) Skin: Warm, Dry Wound/Incisions: Healing Well, Drainage (on the left no significnat drainage on the right. Serosanguinous as expected on lovenox. ) Neurological: Other (sensation intact to left thumb, right thumb with no volar sensation. he does feel incision and zingers parasthesias as expected. ) Psy/Mental Status: Alert - Problem List & Annotations (1) Complete traumatic transphalangeal amputation of thumb SNOMED Code(s): 064012266 Code(s): S68.519A - COMPLETE TRAUMATIC TRANSPHALANGEAL AMPUTATION OF THMB, INIT Status: Acute Priority: High Current Visit: Yes Qualifiers: Encounter type: initial encounter Laterality: left Qualified Code(s): S68.512A - Complete traumatic transphalangeal amputation of left thumb, initial encounter (2) Partial traumatic transphalangeal amputation of thumb SNOMED Code(s): 265024084 Code(s): S68.529A - PARTIAL TRAUMATIC TRANSPHALANGEAL AMPUTATION OF THMB, INIT Status: Acute Priority: High Current Visit: Yes Qualifiers: Encounter type: initial encounter Laterality: right Qualified Code(s): S68.521A - Partial traumatic transphalangeal amputation of right thumb, initial encounter - Problem List Review Problem List Initiated/Reviewed/Updated: Yes - My Orders Last 24 Hours: My Active Orders 09/14/18 14:03 Patient Status [ADT] Routine 09/14/18 14:04 Vital Signs [RC] PER UNIT ROUTINE Wound Care [RC] DAILY Acetaminophen/HYDROcodone [[place] 325-5 MG] 1 tab PO Q4H PRN Ibuprofen [Motrin] 600 mg PO Q6H PRN Morphine 2 mg IVPUSH Q2H PRN Ondansetron [Zofran ODT] 4 mg PO Q6H PRN Ondansetron [Zofran] 4 mg IVPUSH Q4H PRN diphenhydrAMINE [Benadryl] 25 mg PO Q8H PRN 09/14/18 18:00 Enoxaparin [Lovenox] 30 mg SUBCUT Q24H 09/14/18 21:00 Aspirin 81 mg PO BEDTIME 09/14/18 Dinner Regular Diet [DIET] 09/15/18 03:00 Lactated Ringers [Ringers, Lactated] 1,000 ml IV ASDIRECTED 09/15/18 Dinner NPO [Nothing Per Oral Diet] [DIET] - Assessment Assessment:: struggling replant on the right. Left side oneal flap doing quite well. - Plan Plan:: bilateral thumb amputations - transphalangeal. left thumb doing quite well. Right thumb struggling. I do not think this will survive and we discussed revision. We will wait for full declaration. No chance at repeat revascularization given vessel damage and distal amputation. All questions answered. NPO after 3am tonight with fluids then. Otherwise activity and diet as tolerated. norco, morphine and ibuprofen if needed. Lovenox and asa continue.
[2018-09-15] MEDS: Cephalexin 500 MG Cap PO SCH ×3 (11:48→23:56)
[2018-09-15] MEDS: Enoxaparin 30 MG/0.3 ML Syringe SUBCUT SCH (18:26)
[2018-09-15] MEDS: Aspirin 81 MG Tab.Chew PO SCH (21:32)
[2018-09-16] MEDS ORDERED: Lactated Ringers 1,000 ML IV SCH (03:00)
[2018-09-16] MEDS: Cephalexin 500 MG Cap PO SCH ×3 (05:13→18:45)
[2018-09-16] MEDS: Morphine 2 MG/ML Syringe IVPUSH PRN ×2 (05:13→09:19)
--- NOTE | 2018-09-16 09:30 | PCM.PN ---
- General Info Date of Service: 09/16/18 Admission Dx/Problem (Free Text): Admission Diagnosis/Problem Admission Diagnosis/Problem Thumb injury - bilateral thumb amputations transphalangeal Functional Status: Reports: Pain Controlled, Tolerating Diet, New Symptoms - Review of Systems General: Reports: No Symptoms HEENT: Reports: No Symptoms Musculoskeletal: Reports: Hand Pain Skin: Reports: Other (wounds healing well) Neurological: Reports: Numbness, Paresthesia Psychiatric: Reports: No Symptoms - Patient Data Vitals - Most Recent: Last Vital Signs Temp 97.2 F 09/16/18 04:52 Pulse 59 L 09/16/18 04:52 Resp 16 09/16/18 04:52 BP 117/71 09/16/18 04:52 Pulse Ox 96 09/16/18 04:52 Weight - Most Recent: 190 lb I&O - Last 24 Hours: Intake & Output 09/15/18 09/16/18 09/16/18 23:59 07:59 15:59 Intake Total 950 1194 Output Total 1100 650 Balance -150 544 Med Orders - Current: Current Medications Hydrocodone Bitart/Acetaminophen ([place] 325-5 Mg) 1 - 2 tab PO Q4H PRN PRN Reason: Pain (moderate 4-6) Last Admin: 09/15/18 23:55 Dose: 1 tab Aspirin (Aspirin) 81 mg PO BEDTIME [facility] Last Admin: 09/15/18 21:32 Dose: 81 mg Cephalexin (Keflex) 500 mg PO Q6HR [facility] Last Admin: 09/16/18 05:13 Dose: 500 mg Diphenhydramine HCl (Benadryl) 25 mg PO Q8H PRN PRN Reason: Itching Enoxaparin Sodium (Lovenox) 30 mg SUBCUT Q24H [facility] Last Admin: 09/15/18 18:26 Dose: 30 mg Hydromorphone HCl (Dilaudid) 1 mg IVPUSH ONETIME PRN PRN Reason: Pain Last Admin: 09/14/18 22:56 Dose: 1 mg Lactated Ringer's (Ringers, Lactated) 1,000 mls @ 125 mls/hr IV ASDIRECTED [facility] Last Admin: 09/16/18 03:10 Dose: 125 mls/hr Ibuprofen (Motrin) 600 mg PO Q6H PRN PRN Reason: Pain (mild 1-3) Morphine Sulfate (Morphine) 2 mg IVPUSH Q2H PRN PRN Reason: Pain (severe 7-10) Last Admin: 09/16/18 09:19 Dose: 2 mg Ondansetron HCl (Zofran Odt) 4 mg PO Q6H PRN PRN Reason: Nausea/Vomiting Ondansetron HCl (Zofran) 4 mg IVPUSH Q4H PRN PRN Reason: Nausea Promethazine HCl (Phenergan) 12.5 mg IM ONETIME PRN PRN Reason: Nausea Sodium Chloride (Saline Flush) 10 ml FLUSH ASDIRECTED PRN PRN Reason: Keep Vein Open Sodium Chloride (Saline Flush) 2.5 ml FLUSH ASDIRECTED PRN PRN Reason: Keep Vein Open Discontinued Medications Hydrocodone Bitart/Acetaminophen ([place] 325-5 Mg) 1 tab PO Q4H PRN PRN Reason: Pain (moderate 4-6) Last Admin: 09/15/18 18:24 Dose: 1 tab Bupivacaine HCl (Sensorcaine-Mpf 0.25%) Confirm Administered Dose 20 ml .ROUTE .STK-MED ONE Stop: 09/14/18 10:45 Bupivacaine HCl/Epinephrine Bitart ([place] 0.25%/Epinephrine 1:200,000) Confirm Administered Dose 20 ml .ROUTE .STK-MED ONE Stop: 09/14/18 13:55 Dexamethasone (Dexamethasone) Confirm Administered Dose 20 mg .ROUTE .STK-MED ONE Stop: 09/14/18 10:39 Diphtheria/Tetanus/Acell Pertussis (Adacel) 0.5 ml IM .ONCE ONE Stop: 09/14/18 09:15 Last Admin: 09/14/18 09:24 Dose: 0.5 ml Fentanyl (Sublimaze) Confirm Administered Dose 100 mcg .ROUTE .STK-MED ONE Stop: 09/14/18 09:49 Fentanyl (Sublimaze) 50 - 100 mcg IVPUSH Q5M PRN PRN Reason: Pain Stop: 09/14/18 12:40 Hydromorphone HCl (Dilaudid) 1 mg IVPUSH ONETIME ONE Stop: 09/14/18 09:09 Last Admin: 09/14/18 09:18 Dose: 1 mg Hydromorphone HCl (Dilaudid) Confirm Administered Dose 2 mg .ROUTE .STK-MED ONE Stop: 09/14/18 10:53 Cefazolin Sodium/Dextrose 2 gm (/ Premix) 50 mls @ 100 mls/hr IV ONETIME ONE Stop: 09/14/18 09:37 Last Admin: 09/14/18 09:17 Dose: 100 mls/hr Lactated Ringer's (Ringers, Lactated) 1,000 mls @ 125 mls/hr IV ASDIRECTED [facility] Last Admin: 09/15/18 04:56 Dose: 125 mls/hr Ketorolac Tromethamine (Toradol) Confirm Administered Dose 30 mg .ROUTE .STK- MED ONE Stop: 09/14/18 12:57 Ketorolac Tromethamine (Toradol) Confirm Administered Dose 30 mg .ROUTE .STK- MED ONE Stop: 09/14/18 13:26 Lidocaine (Xylocaine-Mpf 2%) Confirm Administered Dose 5 ml .ROUTE .STK-MED ONE Stop: 09/14/18 09:48 Lidocaine (Xylocaine-Mpf 2%) Confirm Administered Dose 20 ml .ROUTE .STK-MED ONE Stop: 09/14/18 10:45 Lidocaine HCl (Xylocaine-Mpf 1%) 5 ml INJECT ONETIME ONE Stop: 09/14/18 09:07 Last Admin: 09/14/18 15:27 Dose: Not Given Lidocaine HCl (Xylocaine-Mpf 1%) 5 ml INJECT ONETIME ONE Stop: 09/14/18 09:31 Last Admin: 09/14/18 15:27 Dose: Not Given Lorazepam (Ativan) 0.5 mg IVPUSH ONETIME ONE Stop: 09/14/18 09:31 Last Admin: 09/14/18 09:36 Dose: 0.5 mg Meperidine HCl (Demerol) 12.5 - 25 mg IV ONETIME PRN PRN Reason: Shivering Stop: 09/14/18 12:37 Midazolam HCl (Versed 1 Mg/Ml) Confirm Administered Dose 2 mg .ROUTE .STK-MED ONE Stop: 09/14/18 09:49 Ondansetron HCl (Zofran) Confirm Administered Dose 4 mg .ROUTE .STK-MED ONE Stop: 09/14/18 10:39 Ondansetron HCl (Zofran) 4 mg IVPUSH ONETIME PRN PRN Reason: Nausea Ondansetron HCl (Zofran) Confirm Administered Dose 4 mg .ROUTE .STK-MED ONE Stop: 09/14/18 12:57 Propofol (Diprivan 20 Ml) Confirm Administered Dose 200 mg .ROUTE .STK-MED ONE Stop: 09/14/18 09:48 Rocuronium [place] (Zemuron) Confirm Administered Dose 100 mg .ROUTE .STK-MED ONE Stop: 09/14/18 09:48 Succinylcholine Chloride (Quelicin) Confirm Administered Dose 200 mg .ROUTE .STK -MED ONE Stop: 09/14/18 09:48 - Exam General: Alert, Oriented, Cooperative HEENT: EOMI Lungs: Normal Respiratory Effort Extremities: Other (left thumb healing nicely. No signs of compromise. Righ tthumb distal tip is frankly compromised at this point. Not viable. ) Skin: Warm, Dry Wound/Incisions: Drainage (bilaterally - serosanguinous at suture lines. As expected. ) Neurological: No New Focal Deficit Psy/Mental Status: Alert, Normal Affect, Normal Mood - Problem List & Annotations (1) Complete traumatic transphalangeal amputation of thumb SNOMED Code(s): 448933589 Code(s): S68.519A - COMPLETE TRAUMATIC TRANSPHALANGEAL AMPUTATION OF THMB, INIT Status: Acute Priority: High Current Visit: Yes Qualifiers: Encounter type: initial encounter Laterality: left Qualified Code(s): S68.512A - Complete traumatic transphalangeal amputation of left thumb, initial encounter (2) Partial traumatic transphalangeal amputation of thumb SNOMED Code(s): 163736315 Code(s): S68.529A - PARTIAL TRAUMATIC TRANSPHALANGEAL AMPUTATION OF THMB, INIT Status: Acute Priority: High Current Visit: Yes Qualifiers: Encounter type: subsequent encounter Laterality: right Qualified Code(s) : S68.521D - Partial traumatic transphalangeal amputation of right thumb, subsequent encounter - Problem List Review Problem List Initiated/Reviewed/Updated: Yes - My Orders Last 24 Hours: My Active Orders 09/15/18 08:53 Admission Status [Patient Status] [ADT] Routine 09/15/18 12:00 cephALEXin [Keflex] 500 mg PO Q6HR 09/15/18 18:50 Acetaminophen/HYDROcodone [[place] 325-5 MG] 1 - 2 tab PO Q4H PRN 09/16/18 03:00 Lactated Ringers [Ringers, Lactated] 1,000 ml IV ASDIRECTED 09/16/18 Breakfast NPO After Midnight [Nothing per Oral After Midnight Diet] [DIET] - Assessment Assessment:: Replant on the right is compromised. No revasc potential. Plan revision amputation with possible flap closure. Left side oneal flap doing quite well. - Plan Plan:: bilateral thumb amputations - transphalangeal. left thumb doing quite well. Right thumb compromised. Revision amputation planned today. All questions answered and informed consent obtained. [place], morphine and ibuprofen if needed. Lovenox and asa discontinued now.
[2018-09-16] MEDS ORDERED: Bupivacaine 0.25%/EPINEPHrine 1:200,000 10 ML SDV ONE (09:46)
[2018-09-16] MEDS ORDERED: Dexamethasone 4 MG/ML 5 ML MDV ONE (09:50)
[2018-09-16] MEDS ORDERED: Ondansetron 4 MG/2 ML SDV ONE (09:50)
[2018-09-16] MEDS ORDERED: diphenhydrAMINE 50 MG/ML SDV ONE (09:50)
[2018-09-16] MEDS ORDERED: Propofol 200 MG/20 ML SDV ONE (09:51)
[2018-09-16] MEDS ORDERED: fentaNYL 100 MCG/2 ML SDV ONE ×2 (09:51→11:26)
--- NOTE | 2018-09-16 11:17 | PCM.OPNOTE ---
- General Post-Op/Procedure Note Date of Surgery/Procedure: 09/16/18 Operative Procedure(s): Amputation of the right thumb s/p replant attempt - oneal neurovascular island flap for closure. Pre Op Diagnosis: failed replantation of right thumb transphalangeal amputation Post-Op Diagnosis: Same Anesthesia Technique: General LMA, Local Primary Surgeon: Yanet Meyers Income Tax Auditor: none Complications: None Condition: Serious Free Text/Narrative:: Intake & Output 09/15/18 09/16/18 09/16/18 23:59 07:59 15:59 Intake Total 950 1194 Output Total 1100 650 Balance -150 544
[2018-09-16] MEDS ORDERED: fentaNYL 100 MCG/2 ML SDV IVPUSH PRN (11:22)
--- NOTE | 2018-09-16 11:26 | PCM.POSTAN ---
POST ANESTHESIA ASSESSMENT - MENTAL STATUS Mental Status: Alert, Oriented (awake but slightly drowsy. Responds most appropriately) - VITAL SIGNS Pulse Rate: 64 SaO2: 100 Resp Rate: 16 Blood Pressure: 121/78 - RESPIRATORY Respiratory Status: Respiratory Rate WNL, Airway Patent, O2 Saturation Stable - CARDIOVASCULAR CV Status: Pulse Rate WNL, Blood Pressure Stable - GASTROINTESTINAL GI Status: No Symptoms - PAIN Pain Score: 6 (block by surgeon, 100mcg fentanyl in OR. Fentanyl ordered for pacu) - POST OP HYDRATION Hydration Status: Adequate & Stable - OBSERVATIONS Free Text/Narrative:: Doing well. Good post op phase I recovery.
[2018-09-16] MEDS ORDERED: Ondansetron 4 MG/2 ML SDV IVPUSH SCH (11:30)
--- NOTE | 2018-09-16 13:11 | OR ---
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 PROCEDURE: Amputation of the right thumb (status post replant attempt) with Samantha neurovascular island pedicle flap for closure. RETAIL MERCHANDISING SPECIALIST: None. ANESTHESIA: General LMA with local. INDICATIONS: Mr. Glez is a 23-year-old gentleman, seen today in evaluation, status post replant attempt of the right thumb on Monday. He significantly struggled to survive and unfortunately is no longer viable. Risks and benefits of revision amputation with likely neurovascular island Samantha flap for closure were discussed with him and he was in agreement to proceed. Risks were including, but not limited to, bleeding, infection, damage to underlying or overlying structures, possible need for future interventions, and possible scarring. PROCEDURE IN DETAIL: After informed consent was obtained and placed on the chart, the patient was brought to the operating theater and laid in supine position. After adequate general anesthesia was obtained, the area was prepped and draped, and a time-out was completed to confirm side and site. 0.25% Marcaine with epinephrine was used in a field block. Once adequately anesthetized, the arm was exsanguinated and tourniquet was insufflated to 200 mmHg. Attention was then paid to removal of the previous replantation of the distal aspect of the thumb. This was removed by removing first the 0.45 K-wires that were placed for bone fixation and then by removing the sutures for the skin. The neurovascular bundles were easily located and transected. Once adequately removed, attention was then paid to copious irrigation and minimal trimming of the bone. There was a small wafer of the distal phalanx, and the flexor tendon remnant was sutured to this for hopeful function of this small piece of bone. Once adequately fixated using 4-0 FiberWire for a 4-strand repair, the area was again irrigated and the skin was reapproximated. Unfortunately, the volar skin flap was not able to be advanced sufficiently and thus a neurovascular island pedicle was designed incorporating both neurovascular structures. This was easily dissected similar to the left side previously. Once the Samantha was adequately elevated and advanced, the skin was closed in a V - Y fashion for this flap proximally, and then the dorsal skin and volar skin was reapproximated after debridement and trimming. This was closed using a 4-0 chromic stitch in a horizontal mattress and interrupted fashion. Once adequately closed, the skin was dressed with Xeroform, fluffs, and a Kerlix gauze dressing. The patient tolerated this well, and all counts and needles were correct at the end of the case. FOLLOWUP INSTRUCTIONS: The patient will be maintained in the hospital for pain control, likely discharged home tomorrow. Tolerated well. All counts and needles were correct at the end of the case. HEGGTHE / MODL /[id number] TRAVIS
[2018-09-16] MEDS: Acetaminophen/HYDROcodone 325-5 MG Tab PO PRN ×2 (13:35→19:57)
[2018-09-17] MEDS: Cephalexin 500 MG Cap PO SCH ×5 (00:26→23:59)
[2018-09-17] MEDS: Acetaminophen/HYDROcodone 325-5 MG Tab PO PRN ×5 (00:26→23:59)
--- NOTE | 2018-09-17 08:35 | OR ---
SURGEON: RAJWINDER DEAN MD DATE OF PROCEDURE: 09/14/2018 PREOPERATIVE DIAGNOSIS: Bilateral thumb transphalangeal amputation, traumatic, complete on the left and near complete on the right. POSTOPERATIVE DIAGNOSIS: Bilateral thumb transphalangeal amputation, traumatic, complete on the left and near complete on the right. COMMERCIAL REAL ESTATE AGENT: KESHIA Guadarrama. REASON FOR AND ROLE OF COMMERCIAL REAL ESTATE AGENT: Retraction, prepping, draping, positioning and closure assistance. ANESTHESIA: General ET tube with local. PROCEDURES: 1. Replantation of right thumb with: bone fixation (open fixation of distal phalanx fracture), bilateral digital nerve repairs, and single digital artery repair with use of the operating microscope. 2. Left thumb Samantha flap for distal tip amputation closure (Neurovascular island pedicle flap). INDICATIONS: Mr. 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 The left thumb has a complete tip amputation at the distal phalanx and the right, which is too distal for replantation. This was discussed with him, he understands. We will plan a Samantha flap for closure of this. The right thumb was transected just at the proximal aspect of the distal phalanx. Unfortunately, there is some hope for replantation here. We did discuss that it is not likely given the distal aspect of the significant traumatic nature of this. The nerves are worked out with significant attenuation and elongation demonstrating a significant traumatic impact. Risks and benefits were discussed with him thoroughly including, but not limited to, bleeding, infection, damage to underlying or overlying structures, possible need for future interventions, possible scarring. He does understand that considering this to his thumb, we will always try everything possible. All questions were answered. PROCEDURE IN DETAIL: After informed consent was obtained and placed on the chart, the patient was brought to the operating theater and laid in supine position. After adequate general anesthesia, the area was prepped and draped, and a time-out was completed to confirm side and site. 0.25% Marcaine plain was used for anesthesia and 2% lidocaine was on the field as well for irrigation of the artery. Attention was first paid to the replantation of the right thumb. The thumb was copiously irrigated and the only structure holding the thumb in place was the flexor tendon. The extensor tendon was still intact on the more proximal piece of the bone on the proximal amputation stump. After adequate irrigation, isolation of the structures, 0.45 K-wire was placed across the distal phalanx fracture for appropriate reduction. 0.45 K-wire was trimmed and then other end was used to place for 2-point fixation. The tips were then trimmed and dressed with 0.45 Jurgan balls for protection. Fluoroscopy imaging was used for guidance of this and confirmed appropriate placement. Attention was then paid to copious irrigation again and the operating microscope was brought in. The radial digital artery was much too compromised for repair and was quite distal. Fortunately, the angle of the laceration and burst injury allowed a slightly larger size and viability of the ulnar neurovascular bundle. Both sides were located and a significant amount of the vessel had to be trimmed in order to allow vessel without intimal damage. Once adequately prepared, the 8-0 nylon was used to re-approximate and repair the vessel. Copious irrigation was completed prior to closure of the artery, 2% lidocaine was injected into the area to allow vasodilation and floating of the artery itself for closure. Flow was not brisk but passing through the proximal vessel. Once the vessel was repaired, bilateral digital nerves were then reapproximated as well. Once the bilateral digital nerves were repaired using 9-0 nylon stitch, which of note had to be significantly trimmed again from the obvious traumatic injury and attenuation in stretch. The tourniquet was desufflated after the artery repair and flow was appreciated across the vessel. Unfortunately even with vessel flow there was very poor perfusion of the distal tip amputation with a traumatic injury. Once adequately repaired, attention was then paid to copious irrigation and closure of the skin, and the operating microscope was removed. The skin was closed using a 5-0 chromic stitch in a horizontal mattress fashion. Once adequately closed, the wounds were dressed with Xeroform, fluffs, and a bulky gauze dressing. Attention was then paid to the left thumb. The distal tip amputation was copiously irrigated. Any neurovascular island pedicle Samantha style was designed and advanced until appropriate tension on the distal wound. A minimal amount of bone was trimmed for a smooth contour here and using a 5-0 chromic stitch, the bilateral skin portions and advanced neurovascular island pedicle was reapproximated. The proximal portion of the advancement was closed in a V to Y style fashion. Once adequately closed, the wounds were dressed with Xeroform, fluffs, and a Kerlix gauze dressing. Tourniquet was used for dissection and deflated at the end of the case. The patient tolerated this procedure well. All counts and needles were correct at the end of the case. FOLLOWUP INSTRUCTIONS: The patient will see us in the hospital and will be maintained for pain control and anticoagulation. HEGGTHE / MODL /[id number] MTDD
[2018-09-17] MEDS: Morphine 2 MG/ML Syringe IVPUSH PRN (11:55)
--- NOTE | 2018-09-17 14:56 | PCM.PN ---
- General Info Date of Service: 09/17/18 Admission Dx/Problem (Free Text): Admission Diagnosis/Problem Admission Diagnosis/Problem Thumb injury - bilateral thumb amputations transphalangeal Functional Status: Reports: Tolerating Diet, Ambulating. Denies: Pain Controlled (still hurting a bit more today. Traumatic experience and injury. ) - Review of Systems General: Reports: No Symptoms HEENT: Reports: No Symptoms Pulmonary: Reports: No Symptoms Cardiovascular: Reports: No Symptoms Musculoskeletal: Reports: Hand Pain Skin: Reports: Bruising Neurological: Reports: No Symptoms Psychiatric: Reports: No Symptoms - Patient Data Vitals - Most Recent: Last Vital Signs Temp 97.5 F 09/17/18 12:25 Pulse 62 09/17/18 12:25 Resp 16 09/17/18 12:25 BP 140/82 09/17/18 12:25 Pulse Ox 95 09/17/18 12:25 Weight - Most Recent: 190 lb I&O - Last 24 Hours: Intake & Output 09/16/18 09/17/18 09/17/18 23:59 07:59 15:59 Intake Total 480 500 Output Total 300 Balance 480 200 Med Orders - Current: Current Medications Hydrocodone Bitart/Acetaminophen ([place] 325-5 Mg) 1 - 2 tab PO Q4H PRN PRN Reason: Pain (moderate 4-6) Last Admin: 09/17/18 10:39 Dose: 2 tab Cephalexin (Keflex) 500 mg PO Q6HR PRANEETH Last Admin: 09/17/18 11:55 Dose: 500 mg Diphenhydramine HCl (Benadryl) 25 mg PO Q8H PRN PRN Reason: Itching Ibuprofen (Motrin) 600 mg PO Q6H PRN PRN Reason: Pain (mild 1-3) Morphine Sulfate (Morphine) 2 mg IVPUSH Q2H PRN PRN Reason: Pain (severe 7-10) Last Admin: 09/17/18 11:55 Dose: 2 mg Ondansetron HCl (Zofran Odt) 4 mg PO Q6H PRN PRN Reason: Nausea/Vomiting Ondansetron HCl (Zofran) 4 mg IVPUSH Q4H PRN PRN Reason: Nausea Sodium Chloride (Saline Flush) 10 ml FLUSH ASDIRECTED PRN PRN Reason: Keep Vein Open Sodium Chloride (Saline Flush) 2.5 ml FLUSH ASDIRECTED PRN PRN Reason: Keep Vein Open Discontinued Medications Hydrocodone Bitart/Acetaminophen ([place] 325-5 Mg) 1 tab PO Q4H PRN PRN Reason: Pain (moderate 4-6) Last Admin: 09/15/18 18:24 Dose: 1 tab Aspirin (Aspirin) 81 mg PO BEDTIME [facility] Last Admin: 09/15/18 21:32 Dose: 81 mg Bupivacaine HCl (Sensorcaine-Mpf 0.25%) Confirm Administered Dose 20 ml .ROUTE .STK-MED ONE Stop: 09/14/18 10:45 Bupivacaine HCl/Epinephrine Bitart (Marcaine 0.25%/Epinephrine 1:200,000) Confirm Administered Dose 20 ml .ROUTE .STK-MED ONE Stop: 09/14/18 13:55 Bupivacaine HCl/Epinephrine Bitart (Marcaine 0.25%/Epinephrine 1:200,000) Confirm Administered Dose 10 ml .ROUTE .STK-MED ONE Stop: 09/16/18 09:47 Dexamethasone (Dexamethasone) Confirm Administered Dose 20 mg .ROUTE .STK-MED ONE Stop: 09/14/18 10:39 Dexamethasone (Dexamethasone) Confirm Administered Dose 20 mg .ROUTE .STK-MED ONE Stop: 09/16/18 09:51 Diphenhydramine HCl (Benadryl) Confirm Administered Dose 50 mg .ROUTE .STK-MED ONE Stop: 09/16/18 09:51 Diphtheria/Tetanus/Acell Pertussis (Adacel) 0.5 ml IM .ONCE ONE Stop: 09/14/18 09:15 Last Admin: 09/14/18 09:24 Dose: 0.5 ml Enoxaparin Sodium (Lovenox) 30 mg SUBCUT Q24H [facility] Last Admin: 09/15/18 18:26 Dose: 30 mg Fentanyl (Sublimaze) Confirm Administered Dose 100 mcg .ROUTE .STK-MED ONE Stop: 09/14/18 09:49 Fentanyl (Sublimaze) 50 - 100 mcg IVPUSH Q5M PRN PRN Reason: Pain Stop: 09/14/18 12:40 Fentanyl (Sublimaze) Confirm Administered Dose 100 mcg .ROUTE .STK-MED ONE Stop: 09/16/18 09:52 Fentanyl (Sublimaze) 50 mcg IVPUSH Q5M PRN PRN Reason: Pain (severe 7-10) Stop: 09/17/18 11:23 Fentanyl (Sublimaze) Confirm Administered Dose 100 mcg .ROUTE .STK-MED ONE Stop: 09/16/18 11:27 Last Admin: 09/16/18 12:34 Dose: Not Given Hydromorphone HCl (Dilaudid) 1 mg IVPUSH ONETIME ONE Stop: 09/14/18 09:09 Last Admin: 09/14/18 09:18 Dose: 1 mg Hydromorphone HCl (Dilaudid) Confirm Administered Dose 2 mg .ROUTE .STK-MED ONE Stop: 09/14/18 10:53 Hydromorphone HCl (Dilaudid) 1 mg IVPUSH ONETIME PRN PRN Reason: Pain Last Admin: 09/14/18 22:56 Dose: 1 mg Cefazolin Sodium/Dextrose 2 gm (/ Premix) 50 mls @ 100 mls/hr IV ONETIME ONE Stop: 09/14/18 09:37 Last Admin: 09/14/18 09:17 Dose: 100 mls/hr Lactated Ringer's (Ringers, Lactated) 1,000 mls @ 125 mls/hr IV ASDIRECTED [facility] Last Admin: 09/15/18 04:56 Dose: 125 mls/hr Lactated Ringer's (Ringers, Lactated) 1,000 mls @ 125 mls/hr IV ASDIRECTED [facility] Last Admin: 09/16/18 03:10 Dose: 125 mls/hr Lidocaine HCl (Xylocaine-Mpf 1%) Confirm Administered Dose 5 mls @ as directed .ROUTE .STK-MED ONE Stop: 09/16/18 09:52 Ketorolac Tromethamine (Toradol) Confirm Administered Dose 30 mg .ROUTE .STK- MED ONE Stop: 09/14/18 12:57 Ketorolac Tromethamine (Toradol) Confirm Administered Dose 30 mg .ROUTE .STK- MED ONE Stop: 09/14/18 13:26 Lidocaine (Xylocaine-Mpf 2%) Confirm Administered Dose 5 ml .ROUTE .STK-MED ONE Stop: 09/14/18 09:48 Lidocaine (Xylocaine-Mpf 2%) Confirm Administered Dose 20 ml .ROUTE .STK-MED ONE Stop: 09/14/18 10:45 Lidocaine HCl (Xylocaine-Mpf 1%) 5 ml INJECT ONETIME ONE Stop: 09/14/18 09:07 Last Admin: 09/14/18 15:27 Dose: Not Given Lidocaine HCl (Xylocaine-Mpf 1%) 5 ml INJECT ONETIME ONE Stop: 09/14/18 09:31 Last Admin: 09/14/18 15:27 Dose: Not Given Lorazepam (Ativan) 0.5 mg IVPUSH ONETIME ONE Stop: 09/14/18 09:31 Last Admin: 09/14/18 09:36 Dose: 0.5 mg Meperidine HCl (Demerol) 12.5 - 25 mg IV ONETIME PRN PRN Reason: Shivering Stop: 09/14/18 12:37 Midazolam HCl (Versed 1 Mg/Ml) Confirm Administered Dose 2 mg .ROUTE .STK-MED ONE Stop: 09/14/18 09:49 Ondansetron HCl (Zofran) Confirm Administered Dose 4 mg .ROUTE .STK-MED ONE Stop: 09/14/18 10:39 Ondansetron HCl (Zofran) 4 mg IVPUSH ONETIME PRN PRN Reason: Nausea Ondansetron HCl (Zofran) Confirm Administered Dose 4 mg .ROUTE .STK-MED ONE Stop: 09/14/18 12:57 Ondansetron HCl (Zofran) Confirm Administered Dose 4 mg .ROUTE .STK-MED ONE Stop: 09/16/18 09:51 Ondansetron HCl (Zofran) 4 mg IVPUSH .ONCE PRANEETH Promethazine HCl (Phenergan) 12.5 mg IM ONETIME PRN PRN Reason: Nausea Propofol (Diprivan 20 Ml) Confirm Administered Dose 200 mg .ROUTE .STK-MED ONE Stop: 09/14/18 09:48 Propofol (Diprivan 20 Ml) Confirm Administered Dose 200 mg .ROUTE .STK-MED ONE Stop: 09/16/18 09:52 Rocuronium [place] (Zemuron) Confirm Administered Dose 100 mg .ROUTE .STK-MED ONE Stop: 09/14/18 09:48 Succinylcholine Chloride (Quelicin) Confirm Administered Dose 200 mg .ROUTE .STK -MED ONE Stop: 09/14/18 09:48 - Exam General: Alert, Oriented, Cooperative HEENT: EOMI Lungs: Normal Respiratory Effort Extremities: Arm Pain Skin: Warm, Dry Wound/Incisions: Healing Well, Drainage (minor bleeding as expected. flaps both intact and healing well. No signs of compromise or infection. ). No: Erythema Neurological: No New Focal Deficit Psy/Mental Status: Alert, Normal Affect, Normal Mood - Problem List & Annotations (1) Complete traumatic transphalangeal amputation of thumb SNOMED Code(s): 117591320 Code(s): S68.519A - COMPLETE TRAUMATIC TRANSPHALANGEAL AMPUTATION OF THMB, INIT Status: Acute Priority: High Current Visit: Yes Qualifiers: Encounter type: initial encounter Laterality: left Qualified Code(s): S68.512A - Complete traumatic transphalangeal amputation of left thumb, initial encounter (2) Partial traumatic transphalangeal amputation of thumb SNOMED Code(s): 087912325 Code(s): S68.529A - PARTIAL TRAUMATIC TRANSPHALANGEAL AMPUTATION OF THMB, INIT Status: Acute Priority: High Current Visit: Yes Qualifiers: Encounter type: subsequent encounter Laterality: right Qualified Code(s) : S68.521D - Partial traumatic transphalangeal amputation of right thumb, subsequent encounter - Problem List Review Problem List Initiated/Reviewed/Updated: Yes - Assessment Assessment:: Right side flap and closure healing ok and intact today. Painful for him. Left side oneal flap doing quite well. - Plan Plan:: bilateral thumb amputations - transphalangeal. still hurting and needing additional pain support. Fingers doing well and will wait for better pain control before discharge. [place], morphine and ibuprofen if needed. Ambulatory so no additional anticoagulation or PPX needed for blood clots.
[2018-09-18] MEDS: Acetaminophen/HYDROcodone 325-5 MG Tab PO PRN ×3 (05:21→14:57)
[2018-09-18] MEDS: Cephalexin 500 MG Cap PO SCH ×3 (05:21→17:37)
--- NOTE | 2018-09-18 10:18 | PCM48HPAN ---
Post Anesthesia Note - EVALUATION WITHIN 48HRS OF ANESTHETIC Vital Signs in Normal Range: Yes Patient Participated in Evaluation: Yes Respiratory Function Stable: Yes Airway Patent: Yes Cardiovascular Function Stable: Yes Hydration Status Stable: Yes Pain Control Satisfactory: Yes Nausea and Vomiting Control Satisfactory: Yes Mental Status Recovered: Yes Pulse Rate: 64 Resp Rate: 12 Temperature: 96.8 F Blood Pressure: 121/78
[2018-09-18] MEDS: Morphine 2 MG/ML Syringe IVPUSH PRN (16:15)
--- NOTE | 2018-09-20 08:22 | PCM.PN ---
- General Info Date of Service: 09/18/18 Admission Dx/Problem (Free Text): Admission Diagnosis/Problem Admission Diagnosis/Problem Thumb injury - bilateral thumb amputations transphalangeal Functional Status: Reports: Pain Controlled, Tolerating Diet, Ambulating. Denies: New Symptoms - Review of Systems General: Reports: No Symptoms HEENT: Reports: No Symptoms Pulmonary: Reports: No Symptoms Musculoskeletal: Reports: Hand Pain Skin: Reports: Other (healing wounds) Neurological: Reports: Paresthesia Psychiatric: Reports: No Symptoms - Patient Data Vitals - Most Recent: Last Vital Signs Temp 98.1 F 09/18/18 16:00 Pulse 65 09/18/18 16:00 Resp 18 09/18/18 16:00 BP 130/69 09/18/18 16:00 Pulse Ox 97 09/18/18 16:00 Weight - Most Recent: 190 lb Med Orders - Current: Current Medications Discontinued Medications Hydrocodone Bitart/Acetaminophen ([place] 325-5 Mg) 1 tab PO Q4H PRN PRN Reason: Pain (moderate 4-6) Last Admin: 09/15/18 18:24 Dose: 1 tab Hydrocodone Bitart/Acetaminophen ([place] 325-5 Mg) 1 - 2 tab PO Q4H PRN PRN Reason: Pain (moderate 4-6) Last Admin: 09/18/18 14:57 Dose: 2 tab Aspirin (Aspirin) 81 mg PO BEDTIME PRANEETH Last Admin: 09/15/18 21:32 Dose: 81 mg Bupivacaine HCl (Sensorcaine-Mpf 0.25%) Confirm Administered Dose 20 ml .ROUTE .STK-MED ONE Stop: 09/14/18 10:45 Bupivacaine HCl/Epinephrine Bitart ([place] 0.25%/Epinephrine 1:200,000) Confirm Administered Dose 20 ml .ROUTE .STK-MED ONE Stop: 09/14/18 13:55 Bupivacaine HCl/Epinephrine Bitart ([place] 0.25%/Epinephrine 1:200,000) Confirm Administered Dose 10 ml .ROUTE .STK-MED ONE Stop: 09/16/18 09:47 Cephalexin (Keflex) 500 mg PO Q6HR PRANEETH Last Admin: 09/18/18 17:37 Dose: 500 mg Dexamethasone (Dexamethasone) Confirm Administered Dose 20 mg .ROUTE .STK-MED ONE Stop: 09/14/18 10:39 Dexamethasone (Dexamethasone) Confirm Administered Dose 20 mg .ROUTE .STK-MED ONE Stop: 09/16/18 09:51 Diphenhydramine HCl (Benadryl) 25 mg PO Q8H PRN PRN Reason: Itching Diphenhydramine HCl (Benadryl) Confirm Administered Dose 50 mg .ROUTE .STK-MED ONE Stop: 09/16/18 09:51 Diphtheria/Tetanus/Acell Pertussis (Adacel) 0.5 ml IM .ONCE ONE Stop: 09/14/18 09:15 Last Admin: 09/14/18 09:24 Dose: 0.5 ml Enoxaparin Sodium (Lovenox) 30 mg SUBCUT Q24H PRANEETH Last Admin: 09/15/18 18:26 Dose: 30 mg Fentanyl (Sublimaze) Confirm Administered Dose 100 mcg .ROUTE .STK-MED ONE Stop: 09/14/18 09:49 Fentanyl (Sublimaze) 50 - 100 mcg IVPUSH Q5M PRN PRN Reason: Pain Stop: 09/14/18 12:40 Fentanyl (Sublimaze) Confirm Administered Dose 100 mcg .ROUTE .STK-MED ONE Stop: 09/16/18 09:52 Fentanyl (Sublimaze) 50 mcg IVPUSH Q5M PRN PRN Reason: Pain (severe 7-10) Stop: 09/17/18 11:23 Fentanyl (Sublimaze) Confirm Administered Dose 100 mcg .ROUTE .STK-MED ONE Stop: 09/16/18 11:27 Last Admin: 09/16/18 12:34 Dose: Not Given Hydromorphone HCl (Dilaudid) 1 mg IVPUSH ONETIME ONE Stop: 09/14/18 09:09 Last Admin: 09/14/18 09:18 Dose: 1 mg Hydromorphone HCl (Dilaudid) Confirm Administered Dose 2 mg .ROUTE .STK-MED ONE Stop: 09/14/18 10:53 Hydromorphone HCl (Dilaudid) 1 mg IVPUSH ONETIME PRN PRN Reason: Pain Last Admin: 09/14/18 22:56 Dose: 1 mg Cefazolin Sodium/Dextrose 2 gm (/ Premix) 50 mls @ 100 mls/hr IV ONETIME ONE Stop: 09/14/18 09:37 Last Admin: 09/14/18 09:17 Dose: 100 mls/hr Lactated Ringer's (Ringers, Lactated) 1,000 mls @ 125 mls/hr IV [facility]RECTED [facility] Last Admin: 09/15/18 04:56 Dose: 125 mls/hr Lactated Ringer's (Ringers, Lactated) 1,000 mls @ 125 mls/hr IV [facility]RECT[facility] Last Admin: 09/16/18 03:10 Dose: 125 mls/hr Lidocaine HCl (Xylocaine-Mpf 1%) Confirm Administered Dose 5 mls @ as directed .ROUTE .STK-MED ONE Stop: 09/16/18 09:52 Ibuprofen (Motrin) 600 mg PO Q6H PRN PRN Reason: Pain (mild 1-3) Influenza Virus Vaccine (Fluzone Quad [id number] Syringe) 60 mcg IM .ONCE ONE Stop: 09/18/18 12:54 Last Admin: 09/18/18 15:05 Dose: 60 mcg Ketorolac Tromethamine (Toradol) Confirm Administered Dose 30 mg .ROUTE .STK- MED ONE Stop: 09/14/18 12:57 Ketorolac Tromethamine (Toradol) Confirm Administered Dose 30 mg .ROUTE .STK- MED ONE Stop: 09/14/18 13:26 Lidocaine (Xylocaine-Mpf 2%) Confirm Administered Dose 5 ml .ROUTE .STK-MED ONE Stop: 09/14/18 09:48 Lidocaine (Xylocaine-Mpf 2%) Confirm Administered Dose 20 ml .ROUTE .STK-MED ONE Stop: 09/14/18 10:45 Lidocaine HCl (Xylocaine-Mpf 1%) 5 ml INJECT ONETIME ONE Stop: 09/14/18 09:07 Last Admin: 09/14/18 15:27 Dose: Not Given Lidocaine HCl (Xylocaine-Mpf 1%) 5 ml INJECT ONETIME ONE Stop: 09/14/18 09:31 Last Admin: 09/14/18 15:27 Dose: Not Given Lorazepam (Ativan) 0.5 mg IVPUSH ONETIME ONE Stop: 09/14/18 09:31 Last Admin: 09/14/18 09:36 Dose: 0.5 mg Meperidine HCl (Demerol) 12.5 - 25 mg IV ONETIME PRN PRN Reason: Shivering Stop: 09/14/18 12:37 Midazolam HCl (Versed 1 Mg/Ml) Confirm Administered Dose 2 mg .ROUTE .STK-MED ONE Stop: 09/14/18 09:49 Morphine Sulfate (Morphine) 2 mg IVPUSH Q2H PRN PRN Reason: Pain (severe 7-10) Last Admin: 09/18/18 16:15 Dose: 2 mg Ondansetron HCl (Zofran) Confirm Administered Dose 4 mg .ROUTE .STK-MED ONE Stop: 09/14/18 10:39 Ondansetron HCl (Zofran) 4 mg IVPUSH ONETIME PRN PRN Reason: Nausea Ondansetron HCl (Zofran) Confirm Administered Dose 4 mg .ROUTE .STK-MED ONE Stop: 09/14/18 12:57 Ondansetron HCl (Zofran Odt) 4 mg PO Q6H PRN PRN Reason: Nausea/Vomiting Last Admin: 09/18/18 11:32 Dose: 4 mg Ondansetron HCl (Zofran) 4 mg IVPUSH Q4H PRN PRN Reason: Nausea Ondansetron HCl (Zofran) Confirm Administered Dose 4 mg .ROUTE .[employer]-MED ONE Stop: 09/16/18 09:51 Ondansetron HCl (Zofran) 4 mg IVPUSH .ONCE PRANEETH Promethazine HCl (Phenergan) 12.5 mg IM ONETIME PRN PRN Reason: Nausea Propofol (Diprivan 20 Ml) Confirm Administered Dose 200 mg .ROUTE .STJLGOV-MED ONE Stop: 09/14/18 09:48 Propofol (Diprivan 20 Ml) Confirm Administered Dose 200 mg .ROUTE .STJLGOV-MED ONE Stop: 09/16/18 09:52 Rocuronium [place] (Zemuron) Confirm Administered Dose 100 mg .ROUTE .STJLGOV-MED ONE Stop: 09/14/18 09:48 Sodium Chloride (Saline Flush) 10 ml FLUSH ASDIRECTED PRN PRN Reason: Keep Vein Open Sodium Chloride (Saline Flush) 2.5 ml FLUSH ASDIRECTED PRN PRN Reason: Keep Vein Open Succinylcholine Chloride (Quelicin) Confirm Administered Dose 200 mg .ROUTE .STJLGOV -MED ONE Stop: 09/14/18 09:48 - Exam General: Alert, Oriented, Cooperative HEENT: EOMI Lungs: Normal Respiratory Effort Extremities: Normal Capillary Refill, Arm Pain. No: Redness (healing wounds and flaps viable. No signs of compromise. Excellent wound healing with minor oozing given the lovenox recently. ) Skin: Warm, Dry Wound/Incisions: Healing Well, Drainage. No: Erythema Neurological: Other (zinger type pains in the thumbs as expected for neurapraxia recovery. ). No: No New Focal Deficit Psy/Mental Status: Alert, Normal Affect, Normal Mood - Problem List & Annotations (1) Complete traumatic transphalangeal amputation of thumb SNOMED Code(s): 473083802 Code(s): S68.519A - COMPLETE TRAUMATIC TRANSPHALANGEAL AMPUTATION OF THMB, INIT Status: Acute Priority: High Qualifiers: Encounter type: initial encounter Laterality: left Qualified Code(s): S68.512A - Complete traumatic transphalangeal amputation of left thumb, initial encounter (2) Partial traumatic transphalangeal amputation of thumb SNOMED Code(s): 893644538 Code(s): S68.529A - PARTIAL TRAUMATIC TRANSPHALANGEAL AMPUTATION OF THMB, INIT Status: Acute Priority: High Qualifiers: Encounter type: subsequent encounter Laterality: right Qualified Code(s) : S68.521D - Partial traumatic transphalangeal amputation of right thumb, subsequent encounter - Problem List Review Problem List Initiated/Reviewed/Updated: Yes - Assessment Assessment:: Right side flap and closure healing ok and intact today. Pain better. Left side oneal flap doing quite well. - Plan Plan:: bilateral thumb amputations - transphalangeal. pain controlled with orals Fingers doing well and plan discharge. Marydel and ibuprofen if needed. Ambulatory so no additional anticoagulation or PPX needed for blood clots.
--- NOTE | 2018-09-20 08:27 | PCM.DCSUM1 ---
Discharge Summary - Hospital Course HPI Initial Comments: bilateral thumb amputations partial on the right full on the left. Brief History: OR day 1 - Monday - for replant on the right and oneal for closure ont he left. Lovenox and asa post op but poor prognosis give type of crush amputation and vessel viability. Returned to OR monday for right replant failure and revision amputation with oneal flap for closure. Did well post op with pain. Home Monday. Diagnosis: Stroke: No - Discharge Data Discharge Date: 09/18/18 Discharge Disposition: Home, Self-Care 01 Condition: Stable - Discharge Diagnosis/Problem(s) (1) Complete traumatic transphalangeal amputation of thumb SNOMED Code(s): 765876101 ICD Code: S68.519A - COMPLETE TRAUMATIC TRANSPHALANGEAL AMPUTATION OF THMB, INIT Status: Acute Priority: High Qualifiers: Encounter type: initial encounter Laterality: left Qualified Code(s): S68.512A - Complete traumatic transphalangeal amputation of left thumb, initial encounter (2) Partial traumatic transphalangeal amputation of thumb SNOMED Code(s): 260461868 ICD Code: S68.529A - PARTIAL TRAUMATIC TRANSPHALANGEAL AMPUTATION OF THMB, INIT Status: Acute Priority: High Qualifiers: Encounter type: subsequent encounter Laterality: right Qualified Code(s) : S68.521D - Partial traumatic transphalangeal amputation of right thumb, subsequent encounter - Patient Summary/Data Operative Procedure(s) Performed: Amputation of the right thumb s/p replant attempt - oneal neurovascular island flap for closure. Consults: Consultations 09/14/18 09:21 Consult to Physician [CONS] Stat Recommended Follow-up Testing/Procedures: will see us in clinic monday for recheck. - Patient Instructions Diet: Usual Diet as Tolerated Activity: No Lifting Over 10 Pounds Driving: Do Not Drive (while taking narcotics) Showering/Bathing: May Shower Wound/Incision Care: Change Dressing Daily Notify Provider of: Fever, Increased Pain, Swelling and Redness, Drainage, Nausea and/or Vomiting - Discharge Plan *PRESCRIPTION DRUG MONITORING PROGRAM REVIEWED*: Not Applicable *COPY OF PRESCRIPTION DRUG MONITORING REPORT IN PATIENT SANDHYA: Not Applicable Home Medications: Home Meds . [No Known Home Meds] 09/14/18 [History] Oxygen Therapy Mode: Room Air Patient Handouts: Acetaminophen; Hydrocodone tablets or capsules, Traumatic Finger Amputation, Cephalexin tablets or capsules Referrals: Yanet Meyers MD [Physician] - 09/24/18 1:45 pm - Discharge Summary/Plan Comment DC Time >30 min.: No Discharge Summary/Plan Comment: home today and recheck monday. Call number provided with instruction for any issue sooner. [place] and keflex. - Patient Data Vitals - Most Recent: Last Vital Signs Temp 98.1 F 09/18/18 16:00 Pulse 65 09/18/18 16:00 Resp 18 09/18/18 16:00 BP 130/69 09/18/18 16:00 Pulse Ox 97 09/18/18 16:00 Weight - Most Recent: 190 lb Med Orders - Current: Current Medications Discontinued Medications Hydrocodone Bitart/Acetaminophen ([place] 325-5 Mg) 1 tab PO Q4H PRN PRN Reason: Pain (moderate 4-6) Last Admin: 09/15/18 18:24 Dose: 1 tab Hydrocodone Bitart/Acetaminophen ([place] 325-5 Mg) 1 - 2 tab PO Q4H PRN PRN Reason: Pain (moderate 4-6) Last Admin: 09/18/18 14:57 Dose: 2 tab Aspirin (Aspirin) 81 mg PO BEDTIME PRANEETH Last Admin: 09/15/18 21:32 Dose: 81 mg Bupivacaine HCl (Sensorcaine-Mpf 0.25%) Confirm Administered Dose 20 ml .ROUTE .STK-MED ONE Stop: 09/14/18 10:45 Bupivacaine HCl/Epinephrine Bitart (Marcaine 0.25%/Epinephrine 1:200,000) Confirm Administered Dose 20 ml .ROUTE .STK-MED ONE Stop: 09/14/18 13:55 Bupivacaine HCl/Epinephrine Bitart (Marcaine 0.25%/Epinephrine 1:200,000) Confirm Administered Dose 10 ml .ROUTE .STK-MED ONE Stop: 09/16/18 09:47 Cephalexin (Keflex) 500 mg PO Q6HR PRANEETH Last Admin: 09/18/18 17:37 Dose: 500 mg Dexamethasone (Dexamethasone) Confirm Administered Dose 20 mg .ROUTE .STK-MED ONE Stop: 09/14/18 10:39 Dexamethasone (Dexamethasone) Confirm Administered Dose 20 mg .ROUTE .STK-MED ONE Stop: 09/16/18 09:51 Diphenhydramine HCl (Benadryl) 25 mg PO Q8H PRN PRN Reason: Itching Diphenhydramine HCl (Benadryl) Confirm Administered Dose 50 mg .ROUTE .STK-MED ONE Stop: 09/16/18 09:51 Diphtheria/Tetanus/Acell Pertussis (Adacel) 0.5 ml IM .ONCE ONE Stop: 09/14/18 09:15 Last Admin: 09/14/18 09:24 Dose: 0.5 ml Enoxaparin Sodium (Lovenox) 30 mg SUBCUT Q24H PRANEETH Last Admin: 09/15/18 18:26 Dose: 30 mg Fentanyl (Sublimaze) Confirm Administered Dose 100 mcg .ROUTE .STK-MED ONE Stop: 09/14/18 09:49 Fentanyl (Sublimaze) 50 - 100 mcg IVPUSH Q5M PRN PRN Reason: Pain Stop: 09/14/18 12:40 Fentanyl (Sublimaze) Confirm Administered Dose 100 mcg .ROUTE .STK-MED ONE Stop: 09/16/18 09:52 Fentanyl (Sublimaze) 50 mcg IVPUSH Q5M PRN PRN Reason: Pain (severe 7-10) Stop: 09/17/18 11:23 Fentanyl (Sublimaze) Confirm Administered Dose 100 mcg .ROUTE .STK-MED ONE Stop: 09/16/18 11:27 Last Admin: 09/16/18 12:34 Dose: Not Given Hydromorphone HCl (Dilaudid) 1 mg IVPUSH ONETIME ONE Stop: 09/14/18 09:09 Last Admin: 09/14/18 09:18 Dose: 1 mg Hydromorphone HCl (Dilaudid) Confirm Administered Dose 2 mg .ROUTE .STK-MED ONE Stop: 09/14/18 10:53 Hydromorphone HCl (Dilaudid) 1 mg IVPUSH ONETIME PRN PRN Reason: Pain Last Admin: 09/14/18 22:56 Dose: 1 mg Cefazolin Sodium/Dextrose 2 gm (/ Premix) 50 mls @ 100 mls/hr IV ONETIME ONE Stop: 09/14/18 09:37 Last Admin: 09/14/18 09:17 Dose: 100 mls/hr Lactated Ringer's (Ringers, Lactated) 1,000 mls @ 125 mls/hr IV ASDIRECTED [facility] Last Admin: 09/15/18 04:56 Dose: 125 mls/hr Lactated Ringer's (Ringers, Lactated) 1,000 mls @ 125 mls/hr IV ASDIRECTED [facility] Last Admin: 09/16/18 03:10 Dose: 125 mls/hr Lidocaine HCl (Xylocaine-Mpf 1%) Confirm Administered Dose 5 mls @ as directed .ROUTE .STK-MED ONE Stop: 09/16/18 09:52 Ibuprofen (Motrin) 600 mg PO Q6H PRN PRN Reason: Pain (mild 1-3) Influenza Virus Vaccine (Fluzone Quad [id number] Syringe) 60 mcg IM .ONCE ONE Stop: 09/18/18 12:54 Last Admin: 09/18/18 15:05 Dose: 60 mcg Ketorolac Tromethamine (Toradol) Confirm Administered Dose 30 mg .ROUTE .STK- MED ONE Stop: 09/14/18 12:57 Ketorolac Tromethamine (Toradol) Confirm Administered Dose 30 mg .ROUTE .STK- MED ONE Stop: 09/14/18 13:26 Lidocaine (Xylocaine-Mpf 2%) Confirm Administered Dose 5 ml .ROUTE .STK-MED ONE Stop: 09/14/18 09:48 Lidocaine (Xylocaine-Mpf 2%) Confirm Administered Dose 20 ml .ROUTE .STK-MED ONE Stop: 09/14/18 10:45 Lidocaine HCl (Xylocaine-Mpf 1%) 5 ml INJECT ONETIME ONE Stop: 09/14/18 09:07 Last Admin: 09/14/18 15:27 Dose: Not Given Lidocaine HCl (Xylocaine-Mpf 1%) 5 ml INJECT ONETIME ONE Stop: 09/14/18 09:31 Last Admin: 09/14/18 15:27 Dose: Not Given Lorazepam (Ativan) 0.5 mg IVPUSH ONETIME ONE Stop: 09/14/18 09:31 Last Admin: 09/14/18 09:36 Dose: 0.5 mg Meperidine HCl (Demerol) 12.5 - 25 mg IV ONETIME PRN PRN Reason: Shivering Stop: 09/14/18 12:37 Midazolam HCl (Versed 1 Mg/Ml) Confirm Administered Dose 2 mg .ROUTE .STK-MED ONE Stop: 09/14/18 09:49 Morphine Sulfate (Morphine) 2 mg IVPUSH Q2H PRN PRN Reason: Pain (severe 7-10) Last Admin: 09/18/18 16:15 Dose: 2 mg Ondansetron HCl (Zofran) Confirm Administered Dose 4 mg .ROUTE .[employer]-MED ONE Stop: 09/14/18 10:39 Ondansetron HCl (Zofran) 4 mg IVPUSH ONETIME PRN PRN Reason: Nausea Ondansetron HCl (Zofran) Confirm Administered Dose 4 mg .ROUTE .STK-MED ONE Stop: 09/14/18 12:57 Ondansetron HCl (Zofran Odt) 4 mg PO Q6H PRN PRN Reason: Nausea/Vomiting Last Admin: 09/18/18 11:32 Dose: 4 mg Ondansetron HCl (Zofran) 4 mg IVPUSH Q4H PRN PRN Reason: Nausea Ondansetron HCl (Zofran) Confirm Administered Dose 4 mg .ROUTE .[employer]-MED ONE Stop: 09/16/18 09:51 Ondansetron HCl (Zofran) 4 mg IVPUSH .ONCE PRANEETH Promethazine HCl (Phenergan) 12.5 mg IM ONETIME PRN PRN Reason: Nausea Propofol (Diprivan 20 Ml) Confirm Administered Dose 200 mg .ROUTE .[employer]dsIt-MED ONE Stop: 09/14/18 09:48 Propofol (Diprivan 20 Ml) Confirm Administered Dose 200 mg .ROUTE .[employer]dsIt-MED ONE Stop: 09/16/18 09:52 Rocuronium [place] (Zemuron) Confirm Administered Dose 100 mg .ROUTE .STAdsIt-MED ONE Stop: 09/14/18 09:48 Sodium Chloride (Saline Flush) 10 ml FLUSH ASDIRECTED PRN PRN Reason: Keep Vein Open Sodium Chloride (Saline Flush) 2.5 ml FLUSH ASDIRECTED PRN PRN Reason: Keep Vein Open Succinylcholine Chloride (Quelicin) Confirm Administered Dose 200 mg .ROUTE .STK -MED ONE Stop: 09/14/18 09:48
== END 2018-09-18 17:40 | disposition home or self-care (01) | DRG 906 ==
LOC: MW.ED 09:04 → MW.SDS 10:10 → MW.MS 10:20 → MW.SDS 09-16 03:26 → OBSVTOIN 09-16 14:56 → MW.MS 09-18 03:09
PROVIDERS: ADMIT Plastic Surgery; ATTEND Plastic Surgery
PROC: 0PSR04Z Reposition Right Thumb Phalanx with Internal Fixation Device, Open Approach (ICD-10-PCS; principal; 2018-09-14)
PROC: 0JX Subcutaneous Tissue and Fascia, Transfer (ICD-10-PCS; principal; 2018-09-14)
PROC: 03QB0ZZ Repair Right Radial Artery, Open Approach (ICD-10-PCS; principal; 2018-09-14)
PROC: 01Q40ZZ Repair Ulnar Nerve, Open Approach (ICD-10-PCS; principal; 2018-09-14)
PROC: 0JXJ0ZC Transfer Right Hand Subcutaneous Tissue and Fascia with Skin, Subcutaneous Tissue and Fascia, Open Approach (ICD-10-PCS; 2018-09-16)
PROC: 0X6L0Z3 Detachment at Right Thumb, Low, Open Approach (ICD-10-PCS; 2018-09-16)
PROC: 3E02340 Introduction of Influenza Vaccine into Muscle, Percutaneous Approach (ICD-10-PCS; 2018-09-18)
DX: S68.512A Complete traumatic transphalangeal amputation of left thumb, initial encounter (principal); S68.521A Partial traumatic transphalangeal amputation of right thumb, initial encounter; W20.8XXA Other cause of strike by thrown, projected or falling object, initial encounter; Z23 Encounter for immunization
CPT/HCPCS: 73140-26-F5; 73140-26-FA; 73140-F5; 73140-FA; 90471; 90686; 90715; 96365; 96375; 99285-25; A9270-GY; J0330; J0690; J1100; J1170; J1200; J1650; J1885; J2001; J2060; J2250; J2270; J2405; J2704; J3010; J3490; J7120

== ENCOUNTER 2022-07-13 17:59 | Emergency (ER) | payer BC, OTHER ==
[2022-07-13] MEDS ORDERED: Acetaminophen 500 MG Tab PO ONE (21:31)
[2022-07-13] MEDS ORDERED: Ketorolac 60 MG/2 ML SDV IM ONE (21:31)
[2022-07-13 22:03] LABS: CORONAVIRUS COVID-19 NAA NEGATIVE (NEGATIVE); INFLUENZA A NAA POSITIVE (NEGATIVE); INFLUENZA B NAA NEGATIVE (NEGATIVE)
== END 2022-07-13 22:53 | disposition home or self-care (01) ==
LOC: MW.ED 17:59
DX: J10.1 Influenza due to other identified influenza virus with other respiratory manifestations (principal); Z20.822 Contact with and (suspected) exposure to COVID-19
CPT/HCPCS: 0240U; 96372; 99283; J1885

== ENCOUNTER 2023-09-15 07:14 | Observation (INO) | payer OTHER, BC ==
[2023-09-15 07:25] LABS: BASOPHILS ABSOLUTE AUTO 0.04 K/uL (0.00-0.20); BASOPHILS PERCENT AUTO 0.4 % (0.0-1.0); EOSINOPHILS ABSOLUTE AUTO 0.17 K/uL (0.00-0.45); EOSINOPHILS PERCENT AUTO 1.7 % (0.0-6.0); HEMATOCRIT 45.6 % (42.0-52.0); HEMOGLOBIN 15.6 g/dL (14.0-18.0); IMMATURE GRAN ABSOLUTE AUTO 0.07 K/uL (0.00-0.05); IMMATURE GRAN PERCENT AUTO 0.7 % (0.0-0.4); LYMPHOCYTES ABSOLUTE AUTO 2.14 K/uL (1.00-4.80); LYMPHOCYTES PERCENT AUTO 21.7 % (24.0-44.0); MEAN CORPUSCULAR HEMOGLOBIN 30.1 pg (28.0-32.0); MEAN CORPUSCULAR HGB CONC 34.2 g/dL (32.0-36.0); MEAN PLATELET VOLUME 8.6 fL (9.4-12.4); MONOCYTES ABSOLUTE AUTO 0.44 K/uL (0.00-0.80); MONOCYTES PERCENT AUTO 4.5 % (0.0-8.0); NEUTROPHILS ABSOLUTE AUTO 7.02 K/uL (1.80-7.70); PLATELET COUNT,PLT 244 K/uL (150-400); RED BLOOD CELL COUNT 5.18 M/uL (4.52-5.90); WHITE BLOOD CELL COUNT,WBC 9.88 K/uL (3.9-11.3)
[2023-09-15 07:33] LABS: INR 1.02 (0.86-1.11)
[2023-09-15] MEDS: Sodium Chloride 0.9% 10 ML Syringe FLUSH PRN (07:40)
[2023-09-15] MEDS: fentaNYL 50 MCG/ML SDV IVPUSH ONE (07:41)
[2023-09-15] MEDS: Sodium Chloride 0.9% 2.5 ML Syringe FLUSH PRN (07:41)
[2023-09-15 07:45] LABS: A/G RATIO 0.9 (0.9-1.6); ALANINE AMINOTRANSFERASE,ALT 474 IU/L (14-63); ALBUMIN 3.6 g/dL (3.4-5.0); ALKALINE PHOSPHATASE 72 U/L (46-116); ASPARTATE AMNIOTRANSFERASE,AST 405 IU/L (15-37); BILIRUBIN TOTAL 0.5 mg/dL (0.2-1.0); BLOOD UREA NITROGEN,BUN 15 mg/dL (7.0-18.0); CALCIUM 8.5 mg/dL (8.5-10.1); CARBON DIOXIDE,CO2 27.8 mmol/L (21.0-32.0); CHLORIDE,CL 105 mmol/L (98-107); CREATININE 1.2 mg/dL (0.8-1.3); EST CRCL DRUG DOSING (CG) 95.87 mL/min; ETHANOL BLOOD MEDICAL <3 mg/dL; GLUCOSE RANDOM 102 mg/dL (74-106); POTASSIUM,K 4.3 mmol/L (3.5-5.1); PROTEIN TOTAL,TP 7.4 g/dL (6.4-8.2); SODIUM,NA 140 mmol/L (136-148)
[2023-09-15 07:50] LABS: ESTIMATED GFR 83 mL/min (>60)
[2023-09-15] MEDS: Iopamidol 755 MG/ML 500 ML Multipack Bottle IVPUSH STA (08:31)
[2023-09-15] MEDS: Morphine 4 MG/ML Syringe IVPUSH ONE (08:58)
[2023-09-15] MEDS: Ondansetron 4 MG/2 ML SDV IVPUSH ONE ×2 (08:58→11:10)
[2023-09-15] MEDS: Lidocaine 4% 1 each Patch TOP PRN (10:45)
[2023-09-15 11:01] LABS: APPEARANCE,URINE CLEAR; BILIRUBIN,URINE NEGATIVE (NEGATIVE); COLOR,URINE YELLOW; GLUCOSE,URINE NEGATIVE (NEGATIVE); KETONES,URINE NEGATIVE (NEGATIVE); LEUKOCYTE ESTERASE,URINE NEGATIVE (NEGATIVE); NITRITE,URINE NEGATIVE (NEGATIVE); OCCULT BLOOD,URINE TRACE-INTACT (NEGATIVE); PROTEIN,URINE 30 mg/dL (NEGATIVE); UROBILINOGEN,URINE 0.2 EU/dL (<2.0)
[2023-09-15 11:11] LABS: AMPHETAMINES SCREEN, URINE NEGATIVE (CUTOFF=500); BARBITURATE SCREEN,URINE NEGATIVE (CUTOFF=200); BENZODIAZEPINES SCREEN,URINE NEGATIVE (CUTOFF=150); BUPRENORPHINE SCREEN,URINE NEGATIVE (CUTOFF=10); METHADONE SCREEN, URINE NEGATIVE (CUTOFF=200); METHAMPHETAMINES SCREEN, URINE NEGATIVE (CUTOFF=500); OXYCODONE SCREEN,URINE NEGATIVE (CUT0FF=100); PCP SCREEN,URINE NEGATIVE (CUTOFF=25); THC SCREEN,URINE 20 NG/ML NEGATIVE (CUTOFF=50)
[2023-09-15 11:13] LABS: AMORPHOUS SEDIMENT,URINE LIGHT (NEGATIVE); BACTERIA,URINE FEW (NEGATIVE); EPITHELIAL CELLS,URINE RARE (NONE-FEW); RBC,URINE 0-1 (0-2/HPF); WBC,URINE 0-1 (0-5/HPF)
[2023-09-15] MEDS ORDERED: Ondansetron 4 MG/2 ML SDV IVPUSH PRN (17:43)
[2023-09-15] MEDS ORDERED: Morphine 2 MG/ML SYRINGE IVPUSH PRN (17:43)
[2023-09-15] MEDS ORDERED: Sodium Chloride 0.9% 10 ML Syringe FLUSH PRN (17:43)
[2023-09-15] MEDS ORDERED: Acetaminophen 325 MG Tab PO PRN (17:43)
[2023-09-15] MEDS ORDERED: Sodium Chloride 0.9% 2.5 ML Syringe FLUSH PRN (17:43)
[2023-09-15] MEDS ORDERED: Naloxone 0.4 MG/ML SDV IVPUSH PRN (17:43)
[2023-09-15] MEDS: Acetaminophen/HYDROcodone 325-5 MG Tab PO PRN (19:54)
[2023-09-16 06:28] LABS: BASOPHILS ABSOLUTE AUTO 0.03 K/uL (0.00-0.20); BASOPHILS PERCENT AUTO 0.3 % (0.0-1.0); EOSINOPHILS ABSOLUTE AUTO 0.26 K/uL (0.00-0.45); EOSINOPHILS PERCENT AUTO 2.7 % (0.0-6.0); HEMATOCRIT 43.3 % (42.0-52.0); HEMOGLOBIN 14.6 g/dL (14.0-18.0); IMMATURE GRAN ABSOLUTE AUTO 0.03 K/uL (0.00-0.05); IMMATURE GRAN PERCENT AUTO 0.3 % (0.0-0.4); LYMPHOCYTES PERCENT AUTO 21.7 % (24.0-44.0); MEAN CORPUSCULAR HEMOGLOBIN 30.1 pg (28.0-32.0); MEAN CORPUSCULAR HGB CONC 33.7 g/dL (32.0-36.0); MEAN CORPUSCULAR VOLUME 89.3 fL (83.0-99.0); MEAN PLATELET VOLUME 8.8 fL (9.4-12.4); MONOCYTES ABSOLUTE AUTO 0.93 K/uL (0.00-0.80); MONOCYTES PERCENT AUTO 9.6 % (0.0-8.0); NEUTROPHILS ABSOLUTE AUTO 6.33 K/uL (1.80-7.70); NEUTROPHILS PERCENT AUTO 65.4 % (41.0-71.0); PLATELET COUNT,PLT 224 K/uL (150-400); RED BLOOD CELL COUNT 4.85 M/uL (4.52-5.90); WHITE BLOOD CELL COUNT,WBC 9.68 K/uL (3.9-11.3)
[2023-09-16 06:50] LABS: A/G RATIO 0.9 (0.9-1.6); ALBUMIN 3.4 g/dL (3.4-5.0); BILIRUBIN TOTAL 0.7 mg/dL (0.2-1.0); CALCIUM 8.5 mg/dL (8.5-10.1); CARBON DIOXIDE,CO2 26.8 mmol/L (21.0-32.0); CREATININE 1.1 mg/dL (0.8-1.3); EST CRCL DRUG DOSING (CG) 104.58 mL/min; PROTEIN TOTAL,TP 7.1 g/dL (6.4-8.2)
== END 2023-09-16 15:00 | disposition home or self-care (01) ==
LOC: MW.ED 07:14 → MW.MS 16:35 → INTOOBSV 16:35 → OBSVTOIN 16:35
PROVIDERS: ADMIT Surgery; ATTEND Surgery
DX: S22.41XA Multiple fractures of ribs, right side, initial encounter for closed fracture (principal); V47.6XXA Car passenger injured in collision with fixed or stationary object in traffic accident, initial encounter
CPT/HCPCS: 36415; 70450; 71045; 71046; 71260; 72125; 72141; 74177; 80053; 80305; 80307; 81001; 85025; 85610; 96374; 96375; 96376; 99285; A9270; G0378; J2270; J2405; J3010; J3490; Q9967; 99284